=== PATIENT | female | born 1980 | race Caucasian/White ===

== ENCOUNTER → 2017-11-09 | Outpatient (CLI) | payer OTHER ==
[~2017-11-09] MED LIST: ABL/5 PO; CLX/20 PO; CYAN500T13 PO; FERR1TAB23 PO; LATA0.009 OPB; METF1000 PO
[2017-11-09 09:34] LABS: BASO % 0.5 %; BASO ABS # 0.04 K/uL (0-0.2); EOS % 2.4 %; HEMATOCRIT 40.3 % (37-47); HEMOGLOBIN 13.7 g/dL (12.0-16.0); IG# 0.01 K/uL (0.00-0.02); LYMPH % 45.9 %; LYMPH ABS # 3.83 K/uL (1.2-3.4); MEAN CELL VOLUME 91.2 fL (80-100); MEAN PLATELET VOLUME 9.5 fL (7.4-10.4); MONO % 6.8 %; MONO ABS # 0.57 K/uL (0.11-0.59); NEUT % 44.3 %; NEUT ABS # 3.69 K/uL (1.4-6.5); PLATELET COUNT 286 K/uL (130-400); RED CELL DISTRIBUTION WIDTH CV 12.8 % (11.5-14.5); RED CELL DISTRIBUTION WIDTH SD 42.8 fL (36.4-46.3); WHITE BLOOD COUNT 8.34 K/uL (4.8-10.8)
[2017-11-09 10:02] LABS: ALBUMIN 3.8 gm/dl (3.4-5.0); ALT/SGPT 28 U/L (12-78); AST/SGOT 15 U/L (15-37); BLOOD UREA NITROGEN 9 mg/dl (7-18); CALCIUM 8.4 mg/dl (8.5-10.1); CARBON DIOXIDE 25 mmol/L (21-32); CHOLESTEROL 149 mg/dl (0-200); CREATININE 1.01 mg/dl (0.60-1.20); GLUCOSE 83 mg/dl (70-99); POTASSIUM 3.6 mmol/L (3.5-5.1); SODIUM 142 mmol/L (136-145)
[2017-11-09 10:06] LABS: ALKALINE PHOSPHATASE 54 U/L (45-117); LDL CHOLESTEROL CALCULATED 65 mg/dl; TOTAL PROTEIN 6.8 gm/dl (6.4-8.2)
== END | disposition home or self-care (01) ==
LOC: C.LAB1850 07:22
PROVIDERS: ATTEND Nurse Practitioner Family
DX: E88.81 Metabolic syndrome and other insulin resistance (principal); E16.2 Hypoglycemia, unspecified; E53.8 Deficiency of other specified B group vitamins; R79.0 Abnormal level of blood mineral

== ENCOUNTER 2019-04-14 19:16 | Inpatient (IN) ==
[2019-04-14] MEDS ORDERED: SODIUM CHLORIDE 0.9% 1000ML 1,000 ML IV ONE (19:58)
[2019-04-14 20:10] LABS: Appearance Urine Clear (Clear); Bacteria Urine Automated Negative (Negative); Bilirubin Urine Negative (Negative); Blood Urine Negative (Negative); Color Urine Yellow; Epithelial Cell Urine Auto 20-30 /lpf (0-5); Glucose Urine UA Negative (Negative); Ketones Urine Negative (Negative); Leukocyte Esterase Urine 1+ (Negative); Nitrite Urine Negative (Negative); Protein Urine Negative (Negative); RBC Urine Automated 0-4 /hpf (0-4); Specific Gravity Urine 1.026 (1.000-1.030); Urobilinogen Urine Negative (Negative)
[2019-04-14 20:37] LABS: Basophils # (auto) 0.04 K/uL (0-0.2); Basophils % (auto) 0.4 %; Eosinophils # (auto) 0.07 K/uL (0-0.5); Eosinophils % (auto) 0.7 %; Hematocrit (blood only) 39.4 % (37-47); Hemoglobin 13.8 g/dL (12.0-16.0); Immature Granulocytes # (auto) 0.02 K/uL (0.00-0.02); Immature Granulocytes % (auto) 0.2 %; Lymphocytes # (auto) 3.82 K/uL (1.2-3.4); Lymphocytes % (auto) 40.3 %; Mean Corpuscular Hemoglobin 31.9 pg (25-34); Mean Platelet Volume 9.2 fL (7.4-10.4); Monocytes # (auto) 0.38 K/uL (0.11-0.59); Neutrophils # (auto) 5.14 K/uL (1.4-6.5); Neutrophils % (auto) 54.4 %; Platelet Count 244 K/uL (130-400); RDW Coefficient of Variation 13.1 % (11.5-14.5); RDW Standard Deviation 43.6 fL (36.4-46.3); Red Blood Count 4.33 M/uL (4.2-5.4); White Blood Count 9.47 K/uL (4.8-10.8)
--- NOTE | 2019-04-14 20:50 | XRay Report ---
KUB; PORTABLE AP ONE VIEW CHEST HISTORY: Acute drug overdose Overdose eval for bezoar COMPARISON: Chest radiograph 03/28/2011 FINDINGS: CHEST: Cardiomediastinal and hilar silhouettes are within normal limits. No pneumothorax, pleural effusion, focal airspace consolidation or overt pulmonary edema. 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 Bones appear grossly intact. KUB: The bowel gas pattern is non-obstructive. A round 1.6 cm calcification projects over the abdominal ri ght upper quadrant suggestive of a gallstone. There is no organomegaly. No renal calculi. No uretera l calculi. No pneumoperitoneum or pneumatosis. Mild lumbar levoscoliosis. No fracture. IMPRESSION: 1. No acute processes of the chest. 2. Nonobstructive bowel gas pattern. 3. Suggested cholelithiasis. Electronically signed by: Brandt Schneider M.D. 04/14/2019 8:48 PM
[2019-04-14 20:53] LABS: Amphetamines+Metham, Urine Neg (Neg); Barbiturates, Urine Neg (Neg); Benzodiazepine, Urine Neg (Neg); Cocaine, Urine Neg (Neg); MDMA (Ecstacy), Urine Neg (Neg); Methadone, Urine Neg (Neg); Opiate, Urine Neg (Neg); Phencyclidine, Urine Neg (Neg)
[2019-04-14 20:54] LABS: Albumin Level 3.8 gm/dl (3.4-5.0); BUN Creatinine Ratio 5.7 (10-20); Calcium 8.5 mg/dl (8.5-10.1); Creatinine Clr Calc Pharmacy 67.5 ml/min; Est GFR (African American) 75.7; Est GFR (Non-African American) 65.3; Potassium 3.7 mmol/L (3.5-5.1)
[2019-04-14 20:59] LABS: Pregnancy Test, Serum Negative (Negative)
[2019-04-14 21:04] LABS: Albumin Globulin Ratio 1.2 (0.9-2); Bilirubin,Total 0.4 mg/dl (0.2-1); Globulin 3.2 gm/dl (2.5-4.0); Thyroid Stimulating Hormone 1.18 uIu/ml (0.300-4.500)
[2019-04-14 21:17] LABS: Salicylate 2.7 mg/dl (2.8-20)
[2019-04-14] MEDS ORDERED: ACETYLCYSTEINE IV ONE (21:17)
[2019-04-14] MEDS ORDERED: DEXTROSE 5% IV ONE (21:17)
[2019-04-14] MEDS ORDERED: ONDANSETRON INJ 2 MG/ML 2 ML VIAL IV STA (22:28)
--- NOTE | 2019-04-15 00:57 | History & Physical Report ---
Date of Service April 15, 2019 Assessment & Plan (1) Intentional acetaminophen overdose: Admit tele Acetylcysteine protocol. suicide precautions Consult Psychiatry DVT prophylaxis = SCDs and Lovenox. (2) Nausea & vomiting: Zofran PRN (3) Anxiety disorder: Lorazepam prn (4) PCOS (polycystic ovarian syndrome): Uses Metformin (5) Glaucoma: Continue Xalatan gtts History of Present Illness 38 y/o female presented to the ED 6 hours after ingesting "a handful" of Tylenol. The ingestion is intentional, but it is not entirely clear that she was suicidal. She was concerned enough following the ingestion that she went to pharmacy and took charcoal. Upon presentation she is complaining of nausea. No chest pain, SOB, cough, F/C, vomiting or diarrhea. The patient is difficult to obtain history as she answers vaguely and changes subject. Primary Care Provider: Lance Luu III, CRNP Allergies Allergy/AdvReac Type Severity Reaction Status Date / Time No Known Allergies Allergy Unknown Verified 05/02/19 09:07 Home Medications Home Medications Medication Instructions Recorded Confirmed Type cyanocobalamin (vitamin B-12) 1,000 mcg PO DAILY 05/02/19 05/02/19 History 1,000 mcg capsule escitalopram 10 mg tablet 15 mg PO DAILY 30 Days #45 tab 05/02/19 05/02/19 Rx latanoprost 0.005 % eye drops 1 drops OP QPM 05/02/19 05/02/19 History metformin 1,000 mg tablet 1,000 mg PO BID 05/02/19 05/02/19 History multivitamin with iron tablet 1 tab PO DAILY 05/02/19 05/02/19 History Past Med/Surg History Medical History Anxiety disorder (Chronic) Blindness of left eye (Chronic) Dysmetabolic syndrome X (Chronic) Glaucoma (Chronic) PCOS (polycystic ovarian syndrome) (Chronic) No pertinent family history Surgical History No pertinent past surgical history Family History Other No pertinent family history Social History Preferred Language: Setswana Communication Ability: Visual iman Delivery Crew Member Required: No Beliefs That Will Affect Care: None Current Living Situation: Alone Feels Safe at Home: Yes Smoking Status: Current every day smoker Second Hand Exposure: No ; Hx Alcohol Use: Yes Alcohol type: wine Hx Substance Use: No Review of Systems Review of Systems: All systems reviewed & are unremarkable except as noted in HPI & below Physical Exam Physical Exam: General- adult female, NAD Head- atraumatic Eyes- PERRL, EOMI, anicteric ENT- oropharynx clear Neck- supple, no JVD, no adenopathy, no thyromegaly. Lungs- clear to auscultation b/l, No rales, rhonchi, or wheezes. Heart- regular rhythm; no murmur, no gallop, no rub appreciated Abdomen- normal bowel sounds, soft, nontender. Extremities- no pretibial edema, no calf tenderness; peripheral pulses intact. Neuro- alert, oriented x 3; PERRL, EOMI. 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 Skin- warm & dry Results & Data Vital Signs (Past 12 Hours) Vital Signs Temp Pulse Resp BP Pulse Ox 04/14/19 21:30 82 24 141/83 H 04/14/19 21:00 79 17 136/75 04/14/19 20:50 80 21 04/14/19 20:41 97 H 25 H 04/14/19 20:33 92 H 27 H 137/80 95 04/14/19 19:34 36.5 C 74 18 125/70 100 Laboratory Results Laboratory Results WBC 9.47 K/uL (4.8-10.8) 04/14/19 20:25 RBC 4.33 M/uL (4.2-5.4) 04/14/19 20:25 Hgb 13.8 g/dL (12.0-16.0) 04/14/19 20:25 Hct 39.4 % (37-47) 04/14/19 20:25 MCV 91.0 fL (80-100) 04/14/19 20:25 MCH 31.9 pg (25-34) 04/14/19 20:25 MCHC 35.0 g/dL (32-36) 04/14/19 20:25 RDW Std Deviation 43.6 fL (36.4-46.3) 04/14/19 20:25 RDW Coeff of Cammie 13.1 % (11.5-14.5) 04/14/19 20:25 Plt Count 244 K/uL (130-400) 04/14/19 20:25 MPV 9.2 fL (7.4-10.4) 04/14/19 20:25 Immature Gran % (Auto) 0.2 % 04/14/19 20:25 Neut % (Auto) 54.4 % 04/14/19 20:25 Lymph % (Auto) 40.3 % 04/14/19 20:25 Pettis % (Auto) 4.0 % 04/14/19 20:25 Eos % (Auto) 0.7 % 04/14/19 20:25 Baso % (Auto) 0.4 % 04/14/19 20:25 Immature Gran # (Auto) 0.02 K/uL (0.00-0.02) 04/14/19 20:25 Neut # (Auto) 5.14 K/uL (1.4-6.5) 04/14/19 20:25 Lymph # (Auto) 3.82 K/uL (1.2-3.4) H 04/14/19 20:25 Pettis # (Auto) 0.38 K/uL (0.11-0.59) 04/14/19 20:25 Eos # (Auto) 0.07 K/uL (0-0.5) 04/14/19 20:25 Baso # (Auto) 0.04 K/uL (0-0.2) 04/14/19 20:25 Sodium 139 mmol/L (136-145) 04/14/19 20:25 Potassium 3.7 mmol/L (3.5-5.1) 04/14/19 20:25 Chloride 107 mmol/L (98-107) 04/14/19 20:25 Carbon Dioxide 22 mmol/L (21-32) 04/14/19 20:25 Anion Gap 10.0 (3-11) 04/14/19 20:25 BUN 6 mg/dl (7-18) L 04/14/19 20:25 Creatinine 1.07 mg/dl (0.6-1.2) 04/14/19 20:25 Est Cr Clr Drug Dosing 67.5 ml/min 04/14/19 20:25 Est GFR ( Amer) 75.7 04/14/19 20:25 Est GFR (Non-Af Amer) 65.3 04/14/19 20:25 BUN/Creatinine Ratio 5.7 (10-20) L 04/14/19 20:25 Glucose 104 mg/dl (70-99) H 04/14/19 20:25 Calcium 8.5 mg/dl (8.5-10.1) 04/14/19 20:25 Total Bilirubin 0.4 mg/dl (0.2-1) 04/14/19 20:25 AST 16 U/L (15-37) 04/14/19 20:25 ALT 24 U/L (12-78) 04/14/19 20:25 Alkaline Phosphatase 48 U/L (45-117) 04/14/19 20:25 Total Protein 7.0 gm/dl (6.4-8.2) 04/14/19 20:25 Albumin 3.8 gm/dl (3.4-5.0) 04/14/19 20:25 Globulin 3.2 gm/dl (2.5-4.0) 04/14/19 20:25 Albumin/Globulin Ratio 1.2 (0.9-2) 04/14/19 20:25 TSH 1.180 uIu/ml (0.300-4.500) 04/14/19 20:25 HCG, Qual Negative (Negative) 04/14/19 20:25 Urine Color Yellow 04/14/19 19:50 Urine Appearance Clear (Clear) 04/14/19 19:50 Urine pH 5.0 (4.5-7.5) 04/14/19 19:50 Ur Specific [place] 1.026 (1.000-1.030) 04/14/19 19:50 Urine Protein Negative (Negative) 04/14/19 19:50 Urine Glucose (UA) Negative (Negative) 04/14/19 19:50 Urine Ketones Negative (Negative) 04/14/19 19:50 Urine Blood Negative (Negative) 04/14/19 19:50 Urine Nitrite Negative (Negative) 04/14/19 19:50 Urine Bilirubin Negative (Negative) 04/14/19 19:50 Urine Urobilinogen Negative (Negative) 04/14/19 19:50 Ur Leukocyte Esterase 1+ (Negative) H 04/14/19 19:50 Urine WBC (Auto) 1-5 /hpf (0-5) 04/14/19 19:50 Urine RBC (Auto) 0-4 /hpf (0-4) 04/14/19 19:50 U Hyaline Cast (Auto) 1-5 /lpf (0-5) 04/14/19 19:50 U Epithel Cells (Auto) 20-30 /lpf (0-5) H 04/14/19 19:50 Urine Bacteria (Auto) Negative (Negative) 04/14/19 19:50 Salicylates 2.7 mg/dl (2.8-20) L 04/14/19 20:25 Urine Opiates Screen Neg (Neg) 04/14/19 19:50 Ur Methadone, Qual Neg (Neg) 04/14/19 19:50 Acetaminophen 371 ug/ml (10-30) H* 04/14/19 20:25 Urine Barbiturates Neg (Neg) 04/14/19 19:50 Ur Phencyclidine (PCP) Neg (Neg) 04/14/19 19:50 U Amphetamin/Meth Scrn Neg (Neg) 04/14/19 19:50 MDMA (Ecstasy) Screen Neg (Neg) 04/14/19 19:50 U Benzodiazepines Scrn Neg (Neg) 04/14/19 19:50 Ur Cocaine Metabolite Neg (Neg) 04/14/19 19:50 U Marijuana (THC) Screen Neg (Neg) 04/14/19 19:50 Ethyl Alcohol mg/dL < 3.0 mg/dl (0-3) 04/14/19 20:25 Code Status & VTE Plan VTE Prophylaxis Plan VTE Prophylaxis will be ordered: Yes PG Care Time/CCT Total # of Minutes Spent Total Time Spent: 75 Total Time Spent with Patient: Total time spent is greater than 50% in coordination of care (as documented) at patient's floor/unit and/or counseling patient: (1) Intentional acetaminophen overdose Encounter type: initial encounter Qualified Code(s): T39.1X2A - Poisoning by 4-Aminophenol derivatives, intentional self-harm, initial encounter (2) Nausea & vomiting Vomiting Intractability: non-intractable Vomiting type: unspecified Qu alified Code(s): R11.2 - Nausea with vomiting, unspecified
[2019-04-15] MEDS ORDERED: ONDANSETRON INJ 2 MG/ML 2 ML VIAL IV PRN (01:33)
[2019-04-15] MEDS ORDERED: LORazepam 0.5 MG/1 ML VIAL IV PRN (01:33)
--- NOTE | 2019-04-15 05:41 | Emergency Department Note ---
Entered by Ruperto Patiño acting as a scribe for History of Present Illness General Chief complaint: Overdose (Intentional) Stated complaint: NAUSEA,ANXIETY Time Seen by Provider: 04/14/19 19:58 Source: patient History of Present Illness Onset (ago): hour(s) 6 Severity: severe (30 tablets of acetaminophen) Pain Consistency: + constant Quality: + other (overdose) Associated symptoms: + denies other symptoms (hurting herself before, auditory hallucination, vomiting) and + other (nausea) The patient is a 38 y/o female who presents to the ED w/ CC of an overdose of about 30 tablets of acetaminophen 6 hours ago. The patient states she has bad anxiety and does not handle stress well. She reports she has been experiencing a lot of family stress. The patient notes she was home alone when she took 30 tables of acetaminophen and drank two beers. She states she did not want to hurt herself. The patient reports "I wanted to sleep for a long time". She notes she thought the pills would numb her emotional feelings. The patient states she did not know it was harmful to take all of the acetaminophen because "there was no aspirin in there." She reports she did not vomit but she wanted to, so she bought some charcoal to try to make herself vomit because "anything in a large quantity is bad". The patient notes she is currently nauseous and came here on her own because she was feeling sick and wanted to vomit. She states she has felt hopeless the past month because her aunt was just diagnosed with lung cancer. The patient denies hurting herself before, auditory hallucinations, drinking alcohol regularly, and using marijuana or other drugs. Home Medications Home Medications Medication Instructions Recorded Confirmed Type ARIPIPRAZOLE (ABILIFY) 5 mg PO QPM #0 tab 06/28/15 History CYANOCOBALAMIN (VITAMIN B12 500MCG) 500 mcg PO QAM #0 tab 06/28/15 History Citalopram (Citalopram 1 tab PO QAM #0 06/28/15 History Hydrobromide) FERROUS SULFATE (IRON) 1 tab PO QAM #0 06/28/15 History Latanoprost 0.005% Oph (Xalatan 1 drp OPB QPM #0 06/28/15 History 0.005% Oph) METFORMIN HCL (GLUCOPHAGE) 1,000 mg PO BID #0 tab 06/28/15 History Allergies Allergy/AdvReac Type Severity Reaction Status Date / Time No Known Allergies Allergy Unknown Verified 08/15/15 11:04 Past Med/Surg History Medical History Anxiety disorder (Chronic) Blindness of left eye (Chronic) Dysmetabolic syndrome X (Chronic) Glaucoma (Chronic) PCOS (polycystic ovarian syndrome) (Chronic) No pertinent family history Surgical History No pertinent past surgical history Family History Other No pertinent family history Social History Feels Safe at Home: Yes Smoking Status: Current every day smoker Review of Systems See HPI for pertinent positives & negatives. and A total of 10 systems reviewed and were otherwise negative Physical Exam Vital Signs Vital Signs - 24 hr 04/14/19 19:34 04/14/19 20:33 04/14/19 20:41 Temperature 36.5 C Temperature Source Oral Sepsis Recent Fever Within 48 Hours No Sepsis New/Unexplained Change in Mental Status No Sepsis Action Taken by Nursing No Action Required Pulse Rate 74 92 H 97 H Pulse Rate from SpO2 Sensor 94 H Respiratory Rate 18 27 H 25 H Blood Pressure 125/70 137/80 Blood Pressure Mean 88 99 Pulse Oximetry 100 95 Oxygen Delivery Method Room Air 04/14/19 20:50 04/14/19 21:00 04/14/19 21:30 Temperature Temperature Source Sepsis Recent Fever Within 48 Hours Sepsis New/Unexplained Change in Mental Status Sepsis Action Taken by Nursing Pulse Rate 80 79 82 Pulse Rate from SpO2 Sensor Respiratory Rate 21 17 24 Blood Pressure 136/75 141/83 H Blood Pressure Mean 95 102 Pulse Oximetry Oxygen Delivery Method GENERAL: Awake, alert, uncomfortable-appearing, in no distress HENT: Normocephalic, atraumatic. Oropharynx with dry mucous membranes and otherwise unremarkable. EYES: Normal conjunctiva. Sclera non-icteric. NECK: Supple. No nuchal rigidity. FROM. No JVD. RESPIRATORY: CTAB. CARDIAC: Regular rate, normal rhythm. Extremities warm and well perfused. Pulses equal. ABDOMEN: Soft, non-distended. Mild epigastric discomfort without discrete tenderness to palpation. No rebound or guarding. No masses. RECTAL: Deferred. MUSCULOSKELETAL: Chest examination reveals no tenderness. The back is symmetrical on inspection without obvious abnormality. There is no CVA tenderness to palpation. No joint edema. LOWER EXTREMITIES: Calves are equal size bilaterally and non-tender. No edema. No discoloration. NEURO: Normal sensorium. No sensory or motor deficits noted. SKIN: No rash or jaundice noted. Course 2008: Past medical records reviewed. The patient was evaluated in room A05. A complete history and physical exam was performed. 2228: I reviewed the patient's case with Dr. Velez, [facility] [place] He will evaluate the patient for further management. Administered Medications Acetylcysteine 7,290 mg/ (Dextrose) 1,036.45 mls @ 62.5 mls/hr IV ONCE ONE Stop: 04/15/19 13:51 Last Admin: 04/15/19 04:25 Dose: 62.5 mls/hr Documented by: [id number] Discontinued Medications Sodium Chloride (Nss 1000ml) 1,000 mls @ 999 mls/hr IV .Q1H1M ONE Stop: 04/14/19 20:58 Last Infusion: 04/14/19 21:31 Dose: 0 mls/hr Documented by: [id number] Admin: 04/14/19 20:26 Dose: 999 mls/hr Documented by: [id number] Acetylcysteine 10,940 mg/ (Dextrose) 254.7 mls @ 200 mls/hr IV ONCE ONE Stop: 04/14/19 22:33 Last Infusion: 04/15/19 01:47 Dose: 0 mls/hr Documented by: [id number] Admin: 04/14/19 21:45 Dose: 200 mls/hr Documented by: [id number] Acetylcysteine 3,650 mg/ (Dextrose) 518.25 mls @ 125 mls/hr IV ONCE ONE Stop: 04/15/19 01:25 Last Infusion: 04/15/19 04:02 Dose: 0 mls/hr Documented by: [id number] Admin: 04/14/19 23:39 Dose: 125 mls/hr Documented by: [id number] Ondansetron HCl (Zofran) 4 mg IV NOW STA Stop: 04/14/19 22:29 Last Admin: 04/14/19 22:44 Dose: 4 mg Documented by: [id number] Medical Decision Making Differential Diagnosis Differential includes overdose on Tylenol/aspirin/ethanol, ethylene glycol, methanol, prescribed medications, not prescribe medications/street drugs, metabolic process, traumatic process. Medical Records Attestation: I reviewed the patient's medical records. Home Medications Current Medication List: was personally reviewed by me Laboratory Data Attestation: I reviewed the patient's lab results. Result diagrams: 04/14/19 20:25 04/14/19 20:25 Lab Results 04/14/19 04/14/19 04/14/19 Range/Units 19:50 19:50 20:25 WBC 9.47 (4.8-10.8) K/uL RBC 4.33 (4.2-5.4) M/uL Hgb 13.8 (12.0-16.0) g/dL Hct 39.4 (37-47) % MCV 91.0 (80-100) fL MCH 31.9 (25-34) pg MCHC 35.0 (32-36) g/dL RDW Std Deviation 43.6 (36.4-46.3) fL RDW Coeff of Cammie 13.1 (11.5-14.5) % Plt Count 244 (130-400) K/uL MPV 9.2 (7.4-10.4) fL Immature Gran % (Auto) 0.2 % Neut % (Auto) 54.4 % Lymph % (Auto) 40.3 % [place] % (Auto) 4.0 % Eos % (Auto) 0.7 % Baso % (Auto) 0.4 % Immature Gran # (Auto) 0.02 (0.00-0.02) K/uL Neut # (Auto) 5.14 (1.4-6.5) K/uL Lymph # (Auto) 3.82 H (1.2-3.4) K/uL [place] # (Auto) 0.38 (0.11-0.59) K/uL Eos # (Auto) 0.07 (0-0.5) K/uL Baso # (Auto) 0.04 (0-0.2) K/uL Sodium (136-145) mmol/L Potassium (3.5-5.1) mmol/L Chloride (98-107) mmol/L Carbon Dioxide (21-32) mmol/L Anion Gap (3-11) BUN (7-18) mg/dl Creatinine (0.6-1.2) mg/dl Est Cr Clr Drug Dosing ml/min Est GFR ( Amer) Est GFR (Non-Af Amer) BUN/Creatinine Ratio (10-20) Glucose (70-99) mg/dl Calcium (8.5-10.1) mg/dl Total Bilirubin (0.2-1) mg/dl AST (15-37) U/L ALT (12-78) U/L Alkaline Phosphatase (45-117) U/L Total Protein (6.4-8.2) gm/dl Albumin (3.4-5.0) gm/dl Globulin (2.5-4.0) gm/dl Albumin/Globulin Ratio (0.9-2) TSH (0.300-4.500) uIu/ml HCG, Qual (Negative) Urine Color Yellow Urine Appearance Clear (Clear) Urine pH 5.0 (4.5-7.5) Ur Specific [place] 1.026 (1.000-1.030) Urine Protein Negative (Negative) Urine Glucose (UA) Negative (Negative) Urine Ketones Negative (Negative) Urine Blood Negative (Negative) Urine Nitrite Negative (Negative) Urine Bilirubin Negative (Negative) Urine Urobilinogen Negative (Negative) Ur Leukocyte Esterase 1+ H (Negative) Urine WBC (Auto) 1-5 (0-5) /hpf Urine RBC (Auto) 0-4 (0-4) /hpf U Hyaline Cast (Auto) 1-5 (0-5) /lpf U Epithel Cells (Auto) 20-30 H (0-5) /lpf Urine Bacteria (Auto) Negative (Negative) Salicylates (2.8-20) mg/dl Urine Opiates Screen Neg (Neg) Ur Methadone, Qual Neg (Neg) Acetaminophen (10-30) ug/ml Urine Barbiturates Neg (Neg) Ur Phencyclidine (PCP) Neg (Neg) U Amphetamin/Meth Scrn Neg (Neg) MDMA (Ecstasy) Screen Neg (Neg) U Benzodiazepines Scrn Neg (Neg) Ur Cocaine Metabolite Neg (Neg) U Marijuana (THC) Screen Neg (Neg) Ethyl Alcohol mg/dL (0-3) mg/dl 04/14/19 04/14/1904/14/19 Range/Units 20:25 20:25 20:25 WBC (4.8-10.8) K/uL RBC (4.2-5.4) M/uL Hgb (12.0-16.0) g/dL Hct (37-47) % MCV (80-100) fL MCH (25-34) pg MCHC (32-36) g/dL RDW Std Deviation (36.4-46.3) fL RDW Coeff of Cammie (11.5-14.5) % Plt Count (130-400) K/uL MPV (7.4-10.4) fL Immature Gran % (Auto) % Neut % (Auto) % Lymph % (Auto) % [place] % (Auto) % Eos % (Auto) % Baso % (Auto) % Immature Gran # (Auto) (0.00-0.02) K/uL Neut # (Auto) (1.4-6.5) K/uL Lymph # (Auto) (1.2-3.4) K/uL [place] # (Auto) (0.11-0.59) K/uL Eos # (Auto) (0-0.5) K/uL Baso # (Auto) (0-0.2) K/uL Sodium 139 (136-145) mmol/L Potassium 3.7 (3.5-5.1) mmol/L Chloride 107 (98-107) mmol/L Carbon Dioxide 22 (21-32) mmol/L Anion Gap 10.0 (3-11) BUN 6 L (7-18) mg/dl Creatinine 1.07 (0.6-1.2) mg/dl Est Cr Clr Drug Dosing 67.5 ml/min Est GFR ( Amer) 75.7 Est GFR (Non-Af Amer) 65.3 BUN/Creatinine Ratio 5.7 L (10-20) Glucose 104 H (70-99) mg/dl Calcium 8.5 (8.5-10.1) mg/dl Total Bilirubin 0.4 (0.2-1) mg/dl AST 16 (15-37) U/L ALT 24 (12-78) U/L Alkaline Phosphatase 48 (45-117) U/L Total Protein 7.0 (6.4-8.2) gm/dl Albumin 3.8 (3.4-5.0) gm/dl Globulin 3.2 (2.5-4.0) gm/dl Albumin/Globulin Ratio 1.2 (0.9-2) TSH 1.180 (0.300-4.500) uIu/ml HCG, Qual (Negative) Urine Color Urine Appearance (Clear) Urine pH (4.5-7.5) Ur Specific [place] (1.000-1.030) Urine Protein (Negative) Urine Glucose (UA) (Negative) Urine Ketones (Negative) Urine Blood (Negative) Urine Nitrite (Negative) Urine Bilirubin (Negative) Urine Urobilinogen (Negative) Ur Leukocyte Esterase (Negative) Urine WBC (Auto) (0-5) /hpf Urine RBC (Auto) (0-4) /hpf U Hyaline Cast (Auto) (0-5) /lpf U Epithel Cells (Auto) (0-5) /lpf Urine Bacteria (Auto) (Negative) Salicylates 2.7 L (2.8-20) mg/dl Urine Opiates Screen (Neg) Ur Methadone, Qual (Neg) Acetaminophen 371 H* (10-30) ug/ml Urine Barbiturates (Neg) Ur Phencyclidine (PCP) (Neg) U Amphetamin/Meth Scrn (Neg) MDMA (Ecstasy) Screen (Neg) U Benzodiazepines Scrn (Neg) Ur Cocaine Metabolite (Neg) U Marijuana (THC) Screen (Neg) Ethyl Alcohol mg/dL < 3.0 (0-3) mg/dl 04/14/19 Range/Units 20:25 WBC (4.8-10.8) K/uL RBC (4.2-5.4) M/uL Hgb (12.0-16.0) g/dL Hct (37-47) % MCV (80-100) fL MCH (25-34) pg MCHC (32-36) g/dL RDW Std Deviation (36.4-46.3) fL RDW Coeff of Cammie (11.5-14.5) % Plt Count (130-400) K/uL MPV (7.4-10.4) fL Immature Gran % (Auto) % Neut % (Auto) % Lymph % (Auto) % [place] % (Auto) % Eos % (Auto) % Baso % (Auto) % Immature Gran # (Auto) (0.00-0.02) K/uL Neut # (Auto) (1.4-6.5) K/uL Lymph # (Auto) (1.2-3.4) K/uL [place] # (Auto) (0.11-0.59) K/uL Eos # (Auto) (0-0.5) K/uL Baso # (Auto) (0-0.2) K/uL Sodium (136-145) mmol/L Potassium (3.5-5.1) mmol/L Chloride (98-107) mmol/L Carbon Dioxide (21-32) mmol/L Anion Gap (3-11) BUN (7-18) mg/dl Creatinine (0.6-1.2) mg/dl Est Cr Clr Drug Dosing ml/min Est GFR ( Amer) Est GFR (Non-Af Amer) BUN/Creatinine Ratio (10-20) Glucose (70-99) mg/dl Calcium (8.5-10.1) mg/dl Total Bilirubin (0.2-1) mg/dl AST (15-37) U/L ALT (12-78) U/L Alkaline Phosphatase (45-117) U/L Total Protein (6.4-8.2) gm/dl Albumin (3.4-5.0) gm/dl Globulin (2.5-4.0) gm/dl Albumin/Globulin Ratio (0.9-2) TSH (0.300-4.500) uIu/ml HCG, Qual Negative (Negative) Urine Color Urine Appearance (Clear) Urine pH (4.5-7.5) Ur Specific [place] (1.000-1.030) Urine Protein (Negative) Urine Glucose (UA) (Negative) Urine Ketones (Negative) Urine Blood (Negative) Urine Nitrite (Negative) Urine Bilirubin (Negative) Urine Urobilinogen (Negative) Ur Leukocyte Esterase (Negative) Urine WBC (Auto) (0-5) /hpf Urine RBC (Auto) (0-4) /hpf U Hyaline Cast (Auto) (0-5) /lpf U Epithel Cells (Auto) (0-5) /lpf Urine Bacteria (Auto) (Negative) Salicylates (2.8-20) mg/dl Urine Opiates Screen (Neg) Ur Methadone, Qual (Neg) Acetaminophen (10-30) ug/ml Urine Barbiturates (Neg) Ur Phencyclidine (PCP) (Neg) U Amphetamin/Meth Scrn (Neg) MDMA (Ecstasy) Screen (Neg) U Benzodiazepines Scrn (Neg) Ur Cocaine Metabolite (Neg) U Marijuana (THC) Screen (Neg) Ethyl Alcohol mg/dL (0-3) mg/dl Imaging Data Radiologist's Impression: Radiology results as stated below per my review and the radiologist's interpretation: KUB; PORTABLE AP ONE VIEW CHEST HISTORY: Acute drug overdose Overdose eval for bezoar COMPARISON: Chest radiograph 03/28/2011 FINDINGS: CHEST: Cardiomediastinal and hilar silhouettes are within normal limits. No pneumothorax, pleural effusion, focal airspace consolidation or overt pulmonary edema. 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 Bones appear grossly intact. KUB: The bowel gas pattern is non-obstructive. A round 1.6 cm calcification projects over the abdominal right upper quadrant suggestive of a gallstone. There is no organomegaly. No renal calculi. No ureteral calculi. No pneumoperitoneum or pneumatosis. Mild lumbar levoscoliosis. No fracture. IMPRESSION: 1. No acute processes of the chest. 2. Nonobstructive bowel gas pattern. 3. Suggested cholelithiasis. Electronically signed by: Brandt Schneider M.D. 04/14/2019 8:48 PM ECG Data Attestation: I personally reviewed and interpreted this ECG as follows: Indication: toxicologic Rate (beats per minute): 69 Rhythm: normal sinus Findings: + other (DE 130, QRS 80, QTc 469); no ST depression, no ST elevation and no acute ischemic change Blood Pressure Blood Pressure Findings: Elevated blood pressure Blood Pressure Disposition: further management by hospitalist LIGIA Narrative The patient is a 38 y/o woman with a pmhx of PCOS who presents to the emergency department with intentional Acetaminophen OD of approximately 30 tablets per patients report per HPI. Patient reports taking the pills in excess to "dull her pain" but says she did was not trying to kill herself. She says she did not known acetaminophen could be harmful yet, she acknowledges realizing it was not safe and reports going to a pharmacy for charcoal capsules, which she reports she took. On arrival the patient is uncomfortable but NAD, AFVSS. She appears clinically dry. She has mild epigastric discomfort without discrete ttp. EKG without over acute ischema and with normal intervals. CXR and KUB negative for acute process/no Bezoar. WBC, H/H, platelets wnl. Chemistry without acidosis. LFTs and electrolytes unremarkable. UA negative for infection. ASA dectable but no elevated and patient does not exhibit toxidrome c/w salicylate OD. However, apap level 371 approximately 6.5 hours after ingestion. Thus patient was ordered for NAC. I did explain to the patient the plan for medical admission and additionally the need for psychiatric evaluation and that a 302 petition will be filed given our concern for attempt at self harm. Patient expressed understan ding to she again denied "wanting to hurt herself". Case d/[place] Velez, [facility] [place] who will evaluate the patient for admission. Impression & Plan Intentional acetaminophen overdose, Abdominal pain, Nausea & vomiting, Depression Critical Care Time Critical Care Time: Yes Total Critical Care Time: 75 I have personally spent greater than 75 minutes of critical care time in the direct management of this patient. This includes bedside care, interpretation of diagnostic studies, and testing, discussion with consultants, patient, and family members, and other required patient management activities. This 75 minutes is in excess of all separately billable procedures. Discharge Plan Visit Data *Final* Discharge Date/Time: 04/15/19 01:04 Chief Complaint: Overdose (Intentional) Stated Complaint: NAUSEA,ANXIETY Other Complaint: Nausea ED Provider: Brodie Castanon Discharge Problem: Intentional acetaminophen overdose, Abdominal pain, Nausea & vomiting, Depression Patient Disposition: Admitted As Inpatient Discharge Instructions Interventions: ED Discharge Assessment Last Done: 04/15/19 01:04 Discharge Problem: Intentional acetaminophen overdose Qualifiers: Encounter type: initial encounter Qualified Code(s): T39.1X2A - Poisoning by 4- Aminophenol derivatives, intentional self-harm, initial encounter Abdominal pain Qualifiers: Abdominal location: epigastric Qualified Code(s): R10.13 - Epigastric pain Nausea & vomiting Qualifiers: Vomiting type: unspecified Vomiting Intractability: non-intractable Qualified Code(s): R11.2 - Nausea with vomiting, unspecified The scribe's documentation has been prepared under my direction and personally reviewed by me in its entirety. I confirm that the note above accurately reflects all work, treatment, procedures, and medical decision making performed by me.
[2019-04-15 07:07] LABS: Hematocrit (blood only) 39.9 % (37-47); Hemoglobin 13.7 g/dL (12.0-16.0); Mean Corpuscular Hemoglobin 31.4 pg (25-34); Mean Corpuscular Hgb Conc 34.3 g/dL (32-36); Mean Corpuscular Volume 91.3 fL (80-100); Mean Platelet Volume 9.3 fL (7.4-10.4); Platelet Count 220 K/uL (130-400); RDW Coefficient of Variation 13.2 % (11.5-14.5); RDW Standard Deviation 44.1 fL (36.4-46.3); Red Blood Count 4.37 M/uL (4.2-5.4); White Blood Count 13.28 K/uL (4.8-10.8)
[2019-04-15 07:17] LABS: INR 1.2 (0.9-1.1); Prothrombin Time 12.6 Seconds (9.0-12.0)
[2019-04-15 07:39] LABS: Albumin Level 3.1 gm/dl (3.4-5.0); BUN Creatinine Ratio 6.5 (10-20); Bilirubin Direct 0.1 mg/dl (0-0.2); Calcium 8.4 mg/dl (8.5-10.1); Creatinine Clr Calc Pharmacy 74.3 ml/min; Est GFR (African American) 86.3; Est GFR (Non-African American) 74.5; Potassium 3.6 mmol/L (3.5-5.1)
[2019-04-15 07:41] LABS: Albumin Globulin Ratio 1.1 (0.9-2); Bilirubin,Total 0.5 mg/dl (0.2-1); Globulin 2.8 gm/dl (2.5-4.0); Total Protein 5.9 gm/dl (6.4-8.2)
[2019-04-15] MEDS ORDERED: LATANOPROST 0.005% OP SOLN 2.5 ML BTL OP SCH ×2 (09:00→18:00)
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
[2019-04-15] MEDS: NICOTINE POLACRILEX 2 MG GUM MT PRN ×3 (12:00→21:22)
[2019-04-15] MEDS: FAMOTIDINE 20 MG TAB PO SCH ×2 (12:02→21:14)
[2019-04-15] MEDS: ENOXAPARIN INJ 40 MG/0.4 ML SYR SQ SCH (12:02)
--- NOTE | 2019-04-15 13:35 | Hospitalist Progress Note ---
Date of Service April 15, 2019 Assessment & Plan (1) Intentional acetaminophen overdose: - Acetylcysteine protocol -- will complete infusion at 8 pm this evening. - Suicide precautions. - Tylenol level 371 --> 81. - Psych consulted, appreciate input. May require inpt psych if we cannot es tablish appropriate outpatient support. (2) Anxiety disorder: - Ativan prn. (3) Nausea & vomiting: - Zofran prn -- symptoms now resolved. (4) PCOS (polycystic ovarian syndrome): - On Metformin - holding as inpt. (5) Glaucoma: - Continue home eye drops. Dispo: Discharge likely on 04/16/19 pending psych consult and outpatient follow up. Subjective Pt. is doing well today - no acute pain, chest pain, SOB, N/V. Is having regular BMs. Psych consulted, appreciate input. Review of Systems Review of Systems: All systems reviewed & are unremarkable except as noted in HPI & below Constitutional: no fever, no chills, no fatigue, no weakness and no anorexia Respiratory: no cough, no dyspnea, no dyspnea on exertion and no wheezing Cardiovascular: no chest pain, no palpitations and no edema Gastrointestinal: no abdominal pain, no nausea, no constipation and no diarrhea/loose stools Genitourinary: no difficulty urinating Musculoskeletal: no back pain and no joint pain Integumentary: no non-healing lesions Physical Exam Physical Exam: General: Resting comfortably HEENT: NC/AT; PERRLA with EOMI; [place] conjunctiva, MMM. No erythema of posterior pharynx Neck: Supple and nontender Cardiac: RRR Lungs: CTA bilaterally Abdomen: Bowel normoactive X 4; Nontender to palpation Extremities: Warm. No edema present Neuro: No focal weakness Skin: No rash Results & Data Vital Signs (Past 12 Hours) Vital Signs Temp Pulse Pulse Resp BP BP Pulse Ox 04/15/19 11:54 36.5 C 77 16 143/83 H 98 04/15/19 09:03 70 16 148/84 H 97 04/15/19 06:11 36.4 C L 90 18 119/63 94 04/15/19 04:17 36.6 C 77 21 114/76 97 Laboratory Results 04/15/19 04/15/19 04/15/19 Range/Units 06:54 06:54 06:54 WBC (4.8-10.8) K/uL RBC (4.2-5.4) M/uL Hgb (12.0-16.0) g/dL Hct (37-47) % MCV (80-100) fL MCH (25-34) pg MCHC (32-36) g/dL RDW Std Deviation (36.4-46.3) fL RDW Coeff of Cammie (11.5-14.5) % Plt Count (130-400) K/uL MPV (7.4-10.4) fL Immature Gran % (Auto) % Neut % (Auto) % Lymph % (Auto) % [place] % (Auto) % Eos % (Auto) % Baso % (Auto) % Immature Gran # (Auto) (0.00-0.02) K/uL Neut # (Auto) (1.4-6.5) K/uL Lymph # (Auto) (1.2-3.4) K/uL [place] # (Auto) (0.11-0.59) K/uL Eos # (Auto) (0-0.5) K/uL Baso # (Auto) (0-0.2) K/uL PT 12.6 H (9.0-12.0) Seconds INR 1.2 H (0.9-1.1) Sodium 139 (136-145) mmol/L Potassium 3.6 (3.5-5.1) mmol/L Chloride 112 H (98-107) mmol/L Carbon Dioxide 21 (21-32) mmol/L Anion Gap 7.0 (3-11) BUN 6 L (7-18) mg/dl Creatinine 0.96 (0.6-1.2) mg/dl Est Cr Clr Drug Dosing 74.3 ml/min Est GFR ( Amer) 86.3 Est GFR (Non-Af Amer) 74.5 BUN/Creatinine Ratio 6.5 L (10-20) Glucose 103 H (70-99) mg/dl Calcium 8.4 L (8.5-10.1) mg/dl Total Bilirubin 0.5 (0.2-1) mg/dl Direct Bilirubin 0.1 (0-0.2) mg/dl AST 10 L (15-37) U/L ALT 22 (12-78) U/L Alkaline Phosphatase 45 (45-117) U/L Total Protein 5.9 L (6.4-8.2) gm/dl Albumin 3.1 L (3.4-5.0) gm/dl Globulin 2.8 (2.5-4.0) gm/dl Albumin/Globulin Ratio 1.1 (0.9-2) TSH (0.300-4.500) uIu/ml HCG, Qual (Negative) Urine Color Urine Appearance (Clear) Urine pH (4.5-7.5) Ur Specific [place] (1.000-1.030) Urine Protein (Negative) Urine Glucose (UA) (Negative) Urine Ketones (Negative) Urine Blood (Negative) Urine Nitrite (Negative) Urine Bilirubin (Negative) Urine Urobilinogen (Negative) Ur Leukocyte Esterase (Negative) Urine WBC (Auto) (0-5) /hpf Urine RBC (Auto) (0-4) /hpf U Hyaline Cast (Auto) (0-5) /lpf U Epithel Cells (Auto) (0-5) /lpf Urine Bacteria (Auto) (Negative) Salicylates (2.8-20) mg/dl Urine Opiates Screen (Neg) Ur Methadone, Qual (Neg) Acetaminophen 81 H (10-30) ug/ml Urine Barbiturates (Neg) Ur Phencyclidine (PCP) (Neg) U Amphetamin/Meth Scrn (Neg) MDMA (Ecstasy) Screen (Neg) U Benzodiazepines Scrn (Neg) Ur Cocaine Metabolite (Neg) U Marijuana (THC) Screen (Neg) Ethyl Alcohol mg/dL (0-3) mg/dl 04/15/19 04/14/19 04/14/19 Range/Units 06:54 20:25 20:25 WBC 13.28 H (4.8-10.8) K/uL RBC 4.37 (4.2-5.4) M/uL Hgb 13.7 (12.0-16.0) g/dL Hct 39.9 (37-47) % MCV 91.3 (80-100) fL MCH 31.4 (25-34) pg MCHC 34.3 (32-36) g/dL RDW Std Deviation 44.1 (36.4-46.3) fL RDW Coeff of Cammie 13.2 (11.5-14.5) % Plt Count 220 (130-400) K/uL MPV 9.3 (7.4-10.4) fL Immature Gran % (Auto) % Neut % (Auto) % Lymph % (Auto) % [place] % (Auto) % Eos % (Auto) % Baso % (Auto) % Immature Gran # (Auto) (0.00-0.02) K/uL Neut # (Auto) (1.4-6.5) K/uL Lymph # (Auto) (1.2-3.4) K/uL [place] # (Auto) (0.11-0.59) K/uL Eos # (Auto) (0-0.5) K/uL Baso # (Auto) (0-0.2) K/uL PT (9.0-12.0) Seconds INR (0.9-1.1) Sodium (136-145) mmol/L Potassium (3.5-5.1) mmol/L Chloride (98-107) mmol/L Carbon Dioxide (21-32) mmol/L Anion Gap (3-11) BUN (7-18) mg/dl Creatinine (0.6-1.2) mg/dl Est Cr Clr Drug Dosing ml/min Est GFR ( Amer) Est GFR (Non-Af Amer) BUN/Creatinine Ratio (10-20) Glucose (70-99) mg/dl Calcium (8.5-10.1) mg/dl Total Bilirubin (0.2-1) mg/dl Direct Bilirubin (0-0.2) mg/dl AST (15-37) U/L ALT (12-78) U/L Alkaline Phosphatase (45-117) U/L Total Protein (6.4-8.2) gm/dl Albumin (3.4-5.0) gm/dl Globulin (2.5-4.0) gm/dl Albumin/Globulin Ratio (0.9-2) TSH (0.300-4.500) uIu/ml HCG, Qual Negative (Negative) Urine Color Urine Appearance (Clear) Urine pH (4.5-7.5) Ur Specific [place] (1.000-1.030) Urine Protein (Negative) Urine Glucose (UA) (Negative) Urine Ketones (Negative) Urine Blood (Negative) Urine Nitrite (Negative) Urine Bilirubin (Negative) Urine Urobilinogen (Negative) Ur Leukocyte Esterase (Negative) Urine WBC (Auto) (0-5) /hpf Urine RBC (Auto) (0-4) /hpf U Hyaline Cast (Auto) (0-5) /lpf U Epithel Cells (Auto) (0-5) /lpf Urine Bacteria (Auto) (Negative) Salicylates (2.8-20) mg/dl Urine Opiates Screen (Neg) Ur Methadone, Qual (Neg) Acetaminophen (10-30) ug/ml Urine Barbiturates (Neg) Ur Phencyclidine (PCP) (Neg) U Amphetamin/Meth Scrn (Neg) MDMA (Ecstasy) Screen (Neg) U Benzodiazepines Scrn (Neg) Ur Cocaine Metabolite (Neg) U Marijuana (THC) Screen (Neg) Ethyl Alcohol mg/dL < 3.0 (0-3) mg/dl 04/14/19 04/14/19 04/14/19 Range/Units 20:25 20:25 20:25 WBC 9.47 (4.8-10.8) K/uL RBC 4.33 (4.2-5.4) M/uL Hgb 13.8 (12.0-16.0) g/dL Hct 39.4 (37-47) % MCV 91.0 (80-100) fL MCH 31.9 (25-34) pg MCHC 35.0 (32-36) g/dL RDW Std Deviation 43.6 (36.4-46.3) fL RDW Coeff of Cammie 13.1 (11.5-14.5) % Plt Count 244 (130-400) K/uL MPV 9.2 (7.4-10.4) fL Immature Gran % (Auto) 0.2 % Neut % (Auto) 54.4 % Lymph % (Auto) 40.3 % [place] % (Auto) 4.0 % Eos % (Auto) 0.7 % Baso % (Auto) 0.4 % Immature Gran # (Auto) 0.02 (0.00-0.02) K/uL Neut # (Auto) 5.14 (1.4-6.5) K/uL Lymph # (Auto) 3.82 H (1.2-3.4) K/uL [place] # (Auto) 0.38 (0.11-0.59) K/uL Eos # (Auto) 0.07 (0-0.5) K/uL Baso # (Auto) 0.04 (0-0.2) K/uL PT (9.0-12.0) Seconds INR (0.9-1.1) Sodium 139 (136-145) mmol/L Potassium 3.7 (3.5-5.1) mmol/L Chloride 107 (98-107) mmol/L Carbon Dioxide 22 (21-32) mmol/L Anion Gap 10.0 (3-11) BUN 6 L (7-18) mg/dl Creatinine 1.07 (0.6-1.2) mg/dl Est Cr Clr Drug Dosing 67.5 ml/min Est GFR ( Amer) 75.7 Est GFR (Non-Af Amer) 65.3 BUN/Creatinine Ratio 5.7 L (10-20) Glucose 104 H (70-99) mg/dl Calcium 8.5 (8.5-10.1) mg/dl Total Bilirubin 0.4 (0.2-1) mg/dl Direct Bilirubin (0-0.2) mg/dl AST 16 (15-37) U/L ALT 24 (12-78) U/L Alkaline Phosphatase 48 (45-117) U/L Total Protein 7.0 (6.4-8.2) gm/dl Albumin 3.8 (3.4-5.0) gm/dl Globulin 3.2 (2.5-4.0) gm/dl Albumin/Globulin Ratio 1.2 (0.9-2) TSH 1.180 (0.300-4.500) uIu/ml HCG, Qual (Negative) Urine Color Urine Appearance (Clear) Urine pH (4.5-7.5) Ur Specific [place] (1.000-1.030) Urine Protein (Negative) Urine Glucose (UA) (Negative) Urine Ketones (Negative) Urine Blood (Negative) Urine Nitrite (Negative) Urine Bilirubin (Negative) Urine Urobilinogen (Negative) Ur Leukocyte Esterase (Negative) Urine WBC (Auto) (0-5) /hpf Urine RBC (Auto) (0-4) /hpf U Hyaline Cast (Auto) (0-5) /lpf U Epithel Cells (Auto) (0-5) /lpf Urine Bacteria (Auto) (Negative) Salicylates 2.7 L (2.8-20) mg/dl Urine Opiates Screen (Neg) Ur Methadone, Qual (Neg) Acetaminophen 371 H* (10-30) ug/ml Urine Barbiturates (Neg) Ur Phencyclidine (PCP) (Neg) U Amphetamin/Meth Scrn (Neg) MDMA (Ecstasy) Screen (Neg) U Benzodiazepines Scrn (Neg) Ur Cocaine Metabolite (Neg) U Marijuana (THC) Screen (Neg) Ethyl Alcohol mg/dL (0-3) mg/dl 04/14/19 04/14/19 Range/Units 19:50 19:50 WBC (4.8-10.8) K/uL RBC (4.2-5.4) M/uL Hgb (12.0-16.0) g/dL Hct (37-47) % MCV (80-100) fL MCH (25-34) pg MCHC (32-36) g/dL RDW Std Deviation (36.4-46.3) fL RDW Coeff of Cammie (11.5-14.5) % Plt Count (130-400) K/uL MPV (7.4-10.4) fL Immature Gran % (Auto) % Neut % (Auto) % Lymph % (Auto) % [place] % (Auto) % Eos % (Auto) % Baso % (Auto) % Immature Gran # (Auto) (0.00-0.02) K/uL Neut # (Auto) (1.4-6.5) K/uL Lymph # (Auto) (1.2-3.4) K/uL [place] # (Auto) (0.11-0.59) K/uL Eos # (Auto) (0-0.5) K/uL Baso # (Auto) (0-0.2) K/uL PT (9.0-12.0) Seconds INR (0.9-1.1) Sodium (136-145) mmol/L Potassium (3.5-5.1) mmol/L Chloride (98-107) mmol/L Carbon Dioxide (21-32) mmol/L Anion Gap (3-11) BUN (7-18) mg/dl Creatinine (0.6-1.2) mg/dl Est Cr Clr Drug Dosing ml/min Est GFR ( Amer) Est GFR (Non-Af Amer) BUN/Creatinine Ratio (10-20) Glucose (70-99) mg/dl Calcium (8.5-10.1) mg/dl Total Bilirubin (0.2-1) mg/dl Direct Bilirubin (0-0.2) mg/dl AST (15-37) U/L ALT (12-78) U/L Alkaline Phosphatase (45-117) U/L Total Protein (6.4-8.2) gm/dl Albumin (3.4-5.0) gm/dl Globulin (2.5-4.0) gm/dl Albumin/Globulin Ratio (0.9-2) TSH (0.300-4.500) uIu/ml HCG, Qual (Negative) Urine Color Yellow Urine Appearance Clear (Clear) Urine pH 5.0 (4.5-7.5) Ur Specific [place] 1.026 (1.000-1.030) Urine Protein Negative (Negative) Urine Glucose (UA) Negative (Negative) Urine Ketones Negative (Negative) Urine Blood Negative (Negative) Urine Nitrite Negative (Negative) Urine Bilirubin Negative (Negative) Urine Urobilinogen Negative (Negative) Ur Leukocyte Esterase 1+ H (Negative) Urine WBC (Auto) 1-5 (0-5) /hpf Urine RBC (Auto) 0-4 (0-4) /hpf U Hyaline Cast (Auto) 1-5 (0-5) /lpf U Epithel Cells (Auto) 20-30 H (0-5) /lpf Urine Bacteria (Auto) Negative (Negative) Salicylates (2.8-20) mg/dl Urine Opiates Screen Neg (Neg) Ur Methadone, Qual Neg (Neg) Acetaminophen (10-30) ug/ml Urine Barbiturates Neg (Neg) Ur Phencyclidine (PCP) Neg (Neg) U Amphetamin/Meth Scrn Neg (Neg) MDMA (Ecstasy) Screen Neg (Neg) U Benzodiazepines Scrn Neg (Neg) Ur Cocaine Metabolite Neg (Neg) U Marijuana (THC) Screen Neg (Neg) Ethyl Alcohol mg/dL (0-3) mg/dl PG Care Time/CCT Total # of Minutes Spent Total Time Spent with Patient: Total time spent is greater than 50% in coordination of care (as documented) at patient's floor/unit and/or counseling patient: (1) Intentional acetaminophen overdose Encounter type: initial encounter Qualified Code(s): T39.1X2A - Poisoning by 4-Aminophenol derivatives, intentional self-harm, initial encounter (2) Nausea & vomiting Vomiting Intractability: non-intractable Vomiting type: unspecified Qualified Code(s): R11.2 - Nausea with vomiting, unspecified
[2019-04-16 06:02] LABS: Hematocrit (blood only) 38.5 % (37-47); Hemoglobin 13.2 g/dL (12.0-16.0); Mean Corpuscular Hemoglobin 31.3 pg (25-34); Mean Corpuscular Hgb Conc 34.3 g/dL (32-36); Mean Corpuscular Volume 91.2 fL (80-100); Mean Platelet Volume 9.5 fL (7.4-10.4); Platelet Count 210 K/uL (130-400); RDW Coefficient of Variation 13.4 % (11.5-14.5); RDW Standard Deviation 44.6 fL (36.4-46.3); Red Blood Count 4.22 M/uL (4.2-5.4); White Blood Count 8.21 K/uL (4.8-10.8)
[2019-04-16 06:29] LABS: INR 1.2 (0.9-1.1); Prothrombin Time 12.1 Seconds (9.0-12.0)
[2019-04-16 06:33] LABS: Albumin Level 3.4 gm/dl (3.4-5.0); BUN Creatinine Ratio 7.5 (10-20); Calcium 8.3 mg/dl (8.5-10.1); Creatinine Clr Calc Pharmacy 84.9 ml/min; Est GFR (African American) 101.5; Est GFR (Non-African American) 87.6; Potassium 3.5 mmol/L (3.5-5.1)
[2019-04-16 06:36] LABS: Albumin Globulin Ratio 1.2 (0.9-2); Bilirubin Direct 0.1 mg/dl (0-0.2); Bilirubin,Total 0.5 mg/dl (0.2-1); Globulin 2.8 gm/dl (2.5-4.0); Total Protein 6.2 gm/dl (6.4-8.2)
[2019-04-16] MEDS: NICOTINE POLACRILEX 2 MG GUM MT PRN (08:26)
[2019-04-16] MEDS: FAMOTIDINE 20 MG TAB PO SCH (08:45)
[2019-04-16] MEDS: ENOXAPARIN INJ 40 MG/0.4 ML SYR SQ SCH (09:18)
--- NOTE | 2019-04-16 13:48 | Hospitalist Progress Note ---
Date of Service April 16, 2019 Assessment & Plan (1) Intentional acetaminophen overdose: - Acetylcysteine protocol completed. - Suicide precautions. - Tylenol level 371 --> 81 --> 3. - Psych consulted, appreciate input. 302 warrant completed, will require inpt facility at discharge. (2) Anxiety disorder: - Ativan prn. (3) PCOS (polycystic ovarian syndrome): - On Metformin - holding as inpt. (4) Glaucoma: - Continue home eye drops. Dispo: Discharge pending placement at inpatient psych facility. Subjective Pt. is doing well today. She spoke with her aunt KARINE via phone call and told her she was admitted to the hospital. Her aunt is planning to call her father as well. The patient does not want her father contacted because "he has a narcissistic who will get involved". Psych following, appreciate input. 302 warrant was completed. Review of Systems Review of Systems: All systems reviewed & are unremarkable except as noted in HPI & below Constitutional: no fever, no chills, no fatigue and no weakness Respiratory: no cough, no dyspnea, no dyspnea on exertion and no wheezing Cardiovascular: no chest pain, no palpitations and no edema Gastrointestinal: no abdominal pain, no nausea and no constipation Genitourinary: no difficulty urinating Musculoskeletal: no back pain and no joint pain Integumentary: no non-healing lesions Physical Exam Physical Exam: General: Resting comfortably HEENT: NC/AT; PERRLA with EOMI; [place] conjunctiva, MMM. No erythema of posterior pharynx Neck: Supple and nontender Cardiac: RRR Lungs: CTA bilaterally Abdomen: Bowel normoactive X 4; Nontender to palpation Extremities: Warm. No edema present Neuro: No focal weakness Skin: No rash Results & Data Vital Signs (Past 12 Hours) Vital Signs Temp Pulse Resp BP Pulse Ox 04/16/19 11:27 36.6 C 86 18 131/80 98 04/16/19 07:32 36.6 C 79 18 123/78 97 04/16/19 04:00 36.7 C 82 16 128/71 95 Laboratory Results 04/16/19 04/16/19 04/16/19 Range/Units 05:37 05:37 05:37 WBC (4.8-10.8) K/uL RBC (4.2-5.4) M/uL Hgb (12.0-16.0) g/dL Hct (37-47) % MCV (80-100) fL MCH (25-34) pg MCHC (32-36) g/dL RDW Std Deviation (36.4-46.3) fL RDW Coeff of Cammie (11.5-14.5) % Plt Count (130-400) K/uL MPV (7.4-10.4) fL PT 12.1 H (9.0-12.0) Seconds INR 1.2 H (0.9-1.1) Sodium 140 (136-145) mmol/L Potassium 3.5 (3.5-5.1) mmol/L Chloride 112 H (98-107) mmol/L Carbon Dioxide 22 (21-32) mmol/L Anion Gap 6.0 (3-11) BUN 6 L (7-18) mg/dl Creatinine 0.84 (0.6-1.2) mg/dl Est Cr Clr Drug Dosing 84.9 ml/min Est GFR ( Amer) 101.5 Est GFR (Non-Af Amer) 87.6 BUN/Creatinine Ratio 7.5 L (10-20) Glucose 85 (70-99) mg/dl Calcium 8.3 L (8.5-10.1) mg/dl Total Bilirubin 0.5 (0.2-1) mg/dl Direct Bilirubin 0.1 (0-0.2) mg/dl AST 10 L (15-37) U/L ALT 23 (12-78) U/L Alkaline Phosphatase 39 L (45-117) U/L Total Protein 6.2 L (6.4-8.2) gm/dl Albumin 3.4 (3.4-5.0) gm/dl Globulin 2.8 (2.5-4.0) gm/dl Albumin/Globulin Ratio 1.2 (0.9-2) Acetaminophen 3 L (10-30) ug/ml 04/16/19 Range/Units 05:37 WBC 8.21 (4.8-10.8) K/uL RBC 4.22 (4.2-5.4) M/uL Hgb 13.2 (12.0-16.0) g/dL Hct 38.5 (37-47) % MCV 91.2 (80-100) fL MCH 31.3 (25-34) pg MCHC 34.3 (32-36) g/dL RDW Std Deviation 44.6 (36.4-46.3) fL RDW Coeff of Cammie 13.4 (11.5-14.5) % Plt Count 210 (130-400) K/uL MPV 9.5 (7.4-10.4) fL PT (9.0-12.0) Seconds INR (0.9-1.1) Sodium (136-145) mmol/L Potassium (3.5-5.1) mmol/L Chloride (98-107) mmol/L Carbon Dioxide (21-32) mmol/L Anion Gap (3-11) BUN (7-18) mg/dl Creatinine (0.6-1.2) mg/dl Est Cr Clr Drug Dosing ml/min Est GFR ( Amer) Est GFR (Non-Af Amer) BUN/Creatinine Ratio (10-20) Glucose (70-99) mg/dl Calcium (8.5-10.1) mg/dl Total Bilirubin (0.2-1) mg/dl Direct Bilirubin (0-0.2) mg/dl AST (15-37) U/L ALT (12-78) U/L Alkaline Phosphatase (45-117) U/L Total Protein (6.4-8.2) gm/dl Albumin (3.4-5.0) gm/dl Globulin (2.5-4.0) gm/dl Albumin/Globulin Ratio (0.9-2) Acetaminophen (10-30) ug/ml PG Care Time/CCT Total # of Minutes Spent Total Time Spent with Patient: Total time spent is greater than 50% in coordination of care (as documented) at patient's floor/unit and/or counseling patient: (1) Intentional acetaminophen overdose Encounter type: initial encounter Qualified Code(s): T39.1X2A - Poisoning by 4-Aminophenol derivatives, intentional self-harm, initial encounter
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
== END 2019-04-16 19:30 | DRG 918 ==
LOC: ED 19:16 → SUATTDRO 23:21 → 2S 23:21
DX: R11.2 Nausea with vomiting, unspecified; F17.210 Nicotine dependence, cigarettes, uncomplicated; E28.2 Polycystic ovarian syndrome; E88.81 Metabolic syndrome and other insulin resistance; T39.1X2A Poisoning by 4-Aminophenol derivatives, intentional self-harm, initial encounter; F32.9 Major depressive disorder, single episode, unspecified; H40.9 Unspecified glaucoma; F41.9 Anxiety disorder, unspecified

== ENCOUNTER 2022-03-08 19:57 | Inpatient (IN) ==
[2022-03-08] MEDS ORDERED: ONDANSETRON INJ 2 MG/ML 2 ML VIAL IV STA (20:17)
[2022-03-08] MEDS ORDERED: THIAMINE HCL 200 MG in SODIUM CHLORIDE 0.9% 50 ML IV STA (20:19)
--- NOTE | 2022-03-08 20:40 | Emergency Department Note ---
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 catheter is seen. Reproductive organs: There is a cystic appearing lesion in the left adnexa, not well seen on prior exam, measuring approximately 37 mm in diameter. Bowel: Unremarkable appearance of the bowel. The appendix is normal. Lymph nodes Retroperitoneal: Unremarkable. Pelvic: Unremarkable. Mesenteric: Unremarkable. Peritoneum: Minimal stranding is in the right lower quadrant, nonspecific. No pneumoperitoneum is seen. Vessels: Unremarkable. Abdominal wall: A fat-containing umbilical hernia is seen. Bones: Unremarkable. IMPRESSION: No acute abnormalities are seen. There is interval development of a 37 mm left adnexal cystic lesion, likely an ovarian cyst. ACT 112: Negative or not required by law. Electronically signed by: Bharat Castro M.D. 03/08/2022 9:[address] 03/08/22 20:19 CT chest diagnostic wo con CLINICAL HISTORY: ams TECHNIQUE: Multidetector row helical CT of the chest was performed. Coronal and sagittal reformations were obtained. Automated dose lowering techniques and/or adjustment according to patient size were utilized for this exam. Comparison: Prior CTA chest 1 2006 FINDINGS: Lungs and pleura: Groundglass opacities are seen in the perihilar lung favoring the upper lobes. There is a 3 mm nodule in the left upper lobe (series 10 image 98) and a 3 mm nodule in the left lower lobe (image 180). Within limits of differences in technique, this appears unchanged from prior exam. Heart and pericardium: Heart size is normal. No pericardial effusion. Vessels: Unremarkable. Mediastinum and ivory: Subcentimeter lymph nodes are seen. Chest wall and lower neck: Subcentimeter axillary lymph nodes noted. Abdomen: Unremarkable. Bones: Unremarkable. IMPRESSION: Groundglass opacities in the perihilar lungs compatible with atelectasis with or without superimposed aspiration/pneumonia. Subcentimeter lymph nodes in the ivory and mediastinum may be reactive. ACT 112: Negative or not required by law. Electronically signed by: Bharat Castro M.D. 03/08/2022 9:34 PM Discharge Plan Visit Data Chief Complaint: Altered Mental Status Stated Complaint: ALTERED MENTAL STATUS ED Provider: Jhoan Joseph Discharge Problem: Depression with suicidal ideation, Suicide gesture, Overdose by acetaminophen, Hypoxia, Rhabdomyolysis Patient Disposition: Admitted As Inpatient Discharge Instructions Interventions: ED Discharge Assessment Last Done: 03/08/22 23:35 Forms Stand Alone Forms: [facility] Prescriptions Prescriptions: No Action prazosin 1 mg capsule 1 mg PO HS Qty: 30 2RF (DME) blood pressure monitor [Blood Pressure Kit] Kit See Rx Instructions .Route Qty: 1 0RF Rx Instructions: As directed magnesium oxide 400 mg (241.3 mg magnesium) tablet 400 mg PO DAILY latanoprost 0.005 % drops 1 drops OP QPM multivitamin with iron [Daily Vitamin with Iron] tablet 1 tab PO DAILY acetaminophen [Tylenol] 325 mg Tablet 650 mg PO TID PRN (Reason: PAIN/FEVER) trazodone 50 mg tablet 50 mg PO HS venlafaxine 150 mg capsule,extended release 24hr 150 mg PO BID Rx Instructions: TAKES QAM & AT 1300 risperidone 2 mg tablet 2 mg PO HS cyanocobalamin (vitamin B-12) [Vitamin B-12] 500 mcg Tablet 500 mcg PO DAILY calcium carbonate [Tums 500] 500 mg calcium (1,250 mg) Tablet,Chewable 1,000 mg PO TID PRN (Reason: GI UPSET/INDIGESTION) omega 1-abt-dic-fish oil [Fish Oil] 1,000 mg (120 mg-180 mg) Capsule 1 cap PO DAILY Rx Instructions: MED LIST FROM THE [facility] D/C Referrals Referrals: Lance Luu III, CRNP [Primary Care Provider] -
[2022-03-08 20:59] LABS: Base Excess ABG -3.9 mEq/L (-9-1.8); HCO3 ABG 21 mmol/L (19-24); Oxygen Saturation ABG 98.6 % (90-95); PCO2 ABG 36 mmHg (35-46); PO2 ABG 86 mmHg (80-95); pH ABG 7.37 (7.35-7.45)
[2022-03-08 21:00] LABS: Pregnancy Test, Serum Negative (Negative)
[2022-03-08 21:03] LABS: INR 1.1 (0.9-1.1); Partial Thromboplastin Ratio 0.9; Partial Thromboplastin Time 24.5 Seconds (21.0-31.0); Prothrombin Time 11.9 Seconds (9.0-12.0)
[2022-03-08 21:09] LABS: Anion Gap 11 (3-11); BUN Creatinine Ratio 8.7 (10-20); Blood Urea Nitrogen 9 mg/dl (6-23); Calcium 9.4 mg/dl (8.5-10.1); Carbon Dioxide 21 mmol/L (21-32); Chloride 108 mmol/L (98-107); Est GFR (African American) 76.7 ml/min; Est GFR (Non-African American) 66.2 ml/min; Glucose 111 mg/dl (70-99(Fasting)); Potassium 3.6 mmol/L (3.5-5.1); Sodium 140 mmol/L (136-145)
[2022-03-08 21:10] LABS: Appearance Urine Clear (Clear); Bacteria Urine Automated Negative (Negative); Bilirubin Urine Negative (Negative); Blood Urine Negative (Negative); Color Urine Yellow; Epithelial Cell Urine Auto 20-30 /lpf (0-5); Glucose Urine UA Negative (Negative); Ketones Urine Negative (Negative); Leukocyte Esterase Urine Negative (Negative); Nitrite Urine Negative (Negative); Protein Urine Trace (Negative); RBC Urine Automated 0-4 /hpf (0-4); Specific Gravity Urine 1.023 (1.000-1.030); Urobilinogen Urine Negative (Negative); pH Urine 5.5 (4.5-7.5)
[2022-03-08 21:13] LABS: Basophils # (auto) 0.04 K/uL (0-0.2); Basophils % (auto) 0.3 %; Eosinophils % (auto) 0.7 %; Hematocrit (blood only) 42.8 % (34.1-44.9); Hemoglobin 13.8 g/dl (12.0-16.0); Immature Granulocytes # (auto) 0.05 K/uL (0.00-0.02); Immature Granulocytes % (auto) 0.4 %; Lymphocytes # (auto) 0.94 K/uL (1.2-3.4); Lymphocytes % (auto) 6.8 %; Mean Corpuscular Hemoglobin 28.9 pg (25.0-34.0); Mean Corpuscular Hgb Conc 32.2 g/dL (32.0-36.0); Mean Corpuscular Volume 89.5 fL (80.0-100.0); Mean Platelet Volume 9.5 fL (9.4-12.3); Monocytes % (auto) 3.6 %; Neutrophils # (auto) 12.11 K/uL (1.4-6.5); Neutrophils % (auto) 88.2 %; Platelet Count 215 K/uL (130-400); RDW Coefficient of Variation 15.1 % (11.5-14.5); RDW Standard Deviation 49.6 fL (36.4-46.3); Red Blood Count 4.78 M/uL (3.93-5.22); White Blood Count 13.74 K/ul (4.8-10.8)
[2022-03-08 21:17] LABS: Acetaminophen 9 ug/ml (10-30); Salicylate < 3.0 mg/dl (3.0-30)
[2022-03-08 21:18] LABS: Alanine Aminotransferase 30 U/L (7-52); Albumin Globulin Ratio 1.7 (0.9-2); Albumin Level 4.7 gm/dl (3.4-5.0); Alkaline Phosphatase 49 U/L (34-104); Aspartate Aminotransferase 53 U/L (13-39); Bilirubin,Total 0.5 mg/dl (0.2-1.0); Globulin 2.7 gm/dl (2.5-4.0); Lipase 26 U/L (11-82); Magnesium 2.1 mg/dl (1.7-2.4); Total Protein 7.4 gm/dl (6.0-8.3); Troponin I High Sensitivity 143.4 pg/ml (0-14)
[2022-03-08 21:19] LABS: Allen Test Pos (Pos)
--- NOTE | 2022-03-08 21:26 | CT Scan Report ---
CT head/brain wo con CLINICAL HISTORY: ams Technique: Contiguous axial CT images of the head were acquired from the base of the skull to the juliet theo without intravenous contrast administration. Images were viewed in brain, [facility]. Automated dose lowering techniques and/or adjustment according to patient size were utilized for this exam. Comparison: None available at the time of this dictation. Findings: The ventricles, basal cisterns, and cerebral sulci are normal. There is no acute intracranial hemorrh age or evidence of acute territorial infarction. Neither mass effect, shift of the midline structures , nor abnormal extra-axial fluid collections are shown. Imaged portions of the paranasal sinuses and mastoid air cells are clear. The orbits appear normal. There are no acute fractures of the calvaria or scalp swelling. Incidental note is made of atrophic appearance of the left lobe. Impression: No acute intracranial hemorrhage, no evidence of acute territorial infarction or other acute intracra nial disease process. ACT 112: Negative or not required by law. Electronically signed by: Bharat Castro M.D. 03/08/2022 9:19 PM
[2022-03-08 21:28] LABS: Creatine Kinase 3958 U/L (26-192)
--- NOTE | 2022-03-08 21:32 | CT Scan Report ---
CT cervical spine wo con CLINICAL HISTORY: ams TECHNIQUE: Multidetector row helical CT of the cervical spine was performed without administration of intravenous contrast. Coronal and sagittal reformations were obtained. Automated dose lowering techn iques and/or adjustment according to patient size were utilized for this exam. Comparison: None available at the time of this dictation. FINDINGS: No acute fractures or subluxations are identified. The vertebral body heights and disk spaces are wel l maintained. The alignment is normal. Biapical scarring is seen in the lungs. IMPRESSION: No evidence of acute bony injury. ACT 112: Negative or not required by law. Electronically signed by: Bharat Castro M.D. 03/08/2022 9:29 PM
--- NOTE | 2022-03-08 21:36 | CT Scan Report ---
CT chest diagnostic wo con CLINICAL HISTORY: ams TECHNIQUE: Multidetector row helical CT of the chest was performed. Coronal and sagittal reformations were obtained. Automated dose lowering techniques and/or adjustment according to patient size were u tilized for this exam. Comparison: Prior CTA chest 1 2006 FINDINGS: Lungs and pleura: Groundglass opacities are seen in the perihilar lung favoring the upper lobes. Ther e is a 3 mm nodule in the left upper lobe (series 10 image 98) and a 3 mm nodule in the left lower lo be (image 180). Within limits of differences in technique, this appears unchanged from prior exam. Heart and pericardium: Heart size is normal. No pericardial effusion. Vessels: Unremarkable. Mediastinum and ivory: Subcentimeter lymph nodes are seen. Chest wall and lower neck: Subcentimeter axillary lymph nodes noted. Abdomen: Unremarkable. Bones: Unremarkable. IMPRESSION: Groundglass opacities in the perihilar lungs compatible with atelectasis with or without superimposed aspiration/pneumonia. Subcentimeter lymph nodes in the ivory and mediastinum may be reactive. ACT 112: Negative or not required by law. Electronically signed by: Bharat Castro M.D. 03/08/2022 9:34 PM
--- NOTE | 2022-03-08 21:36 | XRay Report ---
XR chest 1V portable CLINICAL HISTORY: ams TECHNIQUE: Single frontal radiograph of the chest was obtained. Comparison: Comparison is made to chest radiograph 06/08/2021 FINDINGS: No lines and tubes are seen. The cardiomediastinal silhouette is normal. Compared to prior exam, ther e is minimally increased prominence of the perihilar lungs. No evidence of pleural effusion or pneumo thorax. IMPRESSION: Minimally increased prominence of the perihilar lungs may represent atelectasis, pneumonia, and/or as piration. ACT 112: Negative or not required by law. Electronically signed by: Bharat Castro M.D. 03/08/2022 9:35 PM
--- NOTE | 2022-03-08 21:44 | CT Scan Report ---
CT abd pelvis wo con CLINICAL HISTORY: ams TECHNIQUE: Helical axial images of the abdomen and pelvis were obtained. Automated dose lowering tech niques and/or adjustment according to patient size were utilized for this exam. This exam was perfor med without intravenous contrast. COMPARISON: Comparison is made to pelvic ultrasound 12/25/2020 FINDINGS: Lower chest: No acute abnormality Liver: Unremarkable. No focal lesions are seen. Gallbladder and biliary tree: A radiodense gallstone is noted in the dependent portion of the gallbla dder. The gallbladder wall is incompletely evaluated but appears to measure approximately 3 mm in thi ckness. No intra- or extrahepatic biliary ductal dilation. Pancreas: Unremarkable, no focal lesions. Spleen: Unremarkable. Adrenals: Unremarkable. Kidneys and ureters: Unremarkable. Bladder: Franks catheter is seen. Reproductive organs: There is a cystic appearing lesion in the left adnexa, not well seen on prior ex am, measuring approximately 37 mm in diameter. Bowel: Unremarkable appearance of the bowel. The appendix is normal. Lymph nodes Retroperitoneal: Unremarkable. Pelvic: Unremarkable. Mesenteric: Unremarkable. Peritoneum: Minimal stranding is in the right lower quadrant, nonspecific. No pneumoperitoneum is see n. Vessels: Unremarkable. Abdominal wall: A fat-containing umbilical hernia is seen. Bones: Unremarkable. IMPRESSION: No acute abnormalities are seen. There is interval development of a 37 mm left adnexal cystic lesion, likely an ovarian cyst. ACT 112: Negative or not required by law. Electronically signed by: Bharat Castro M.D. 03/08/2022 9:42 PM
[2022-03-08] MEDS ORDERED: DEXTROSE 5% IV ONE ×2 (21:48→22:48)
[2022-03-08] MEDS ORDERED: ACETYLCYSTEINE IV ONE ×2 (21:48→22:48)
[2022-03-08] MEDS ORDERED: AcetylCYSTEINE IV 21 HR REGIMEN (>40KG) IV STA (21:48)
[2022-03-08 21:50] LABS: Amphetamines+Metham, Urine Neg (Neg); Barbiturates, Urine Neg (Neg); Benzodiazepine, Urine Neg (Neg); Cocaine, Urine Neg (Neg); MDMA (Ecstacy), Urine Pos (Neg); Methadone, Urine Neg (Neg); Opiate, Urine Neg (Neg); Phencyclidine, Urine Neg (Neg)
[2022-03-08] MEDS ORDERED: SODIUM CHLORIDE 0.9% 1000ML 1,000 ML IV ONE (22:04)
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
[2022-03-09] MEDS ORDERED: CALCIUM CARBONATE 500 MG CHEWABLE TAB PO PRN (00:31)
[2022-03-09] MEDS ORDERED: ONDANSETRON INJ 2 MG/ML 2 ML VIAL IV PRN (00:31)
[2022-03-09] MEDS ORDERED: NSS + 20MEQ KCL 20 MEQ/1,000 ML BAG IV SCH (01:00)
[2022-03-09 01:27] LABS: Phosphorus 4.2 mg/dl (2.5-4.9)
[2022-03-09] MEDS ORDERED: ACETYLCYSTEINE IV ONE ×2 (02:48→20:00)
[2022-03-09] MEDS ORDERED: DEXTROSE 5% IV ONE ×2 (02:48→20:00)
[2022-03-09] MEDS ORDERED: PIPERACILLIN/TAZOBACTAM 4.5 GM in DEXTROSE 5% 100 ML IV ONE (03:45)
[2022-03-09 06:27] LABS: Basophils # (auto) 0.04 K/uL (0-0.2); Basophils % (auto) 0.3 %; Eosinophils # (auto) 0.13 K/uL (0-0.50); Hematocrit (blood only) 34.3 % (34.1-44.9); Hemoglobin 11.5 g/dl (12.0-16.0); Immature Granulocytes # (auto) 0.05 K/uL (0.00-0.02); Immature Granulocytes % (auto) 0.4 %; Lymphocytes # (auto) 1.52 K/uL (1.2-3.4); Lymphocytes % (auto) 11.8 %; Mean Corpuscular Hemoglobin 28.6 pg (25.0-34.0); Mean Corpuscular Hgb Conc 33.5 g/dL (32.0-36.0); Mean Corpuscular Volume 85.3 fL (80.0-100.0); Mean Platelet Volume 9.1 fL (9.4-12.3); Monocytes # (auto) 0.83 K/uL (0.24-0.82); Monocytes % (auto) 6.5 %; Neutrophils # (auto) 10.26 K/uL (1.4-6.5); Platelet Count 156 K/uL (130-400); RDW Coefficient of Variation 14.9 % (11.5-14.5); RDW Standard Deviation 46.5 fL (36.4-46.3); Red Blood Count 4.02 M/uL (3.93-5.22); White Blood Count 12.83 K/ul (4.8-10.8)
[2022-03-09 06:38] LABS: INR 1.3 (0.9-1.1); Partial Thromboplastin Ratio 0.9; Partial Thromboplastin Time 25.1 Seconds (21.0-31.0); Prothrombin Time 13.6 Seconds (9.0-12.0)
[2022-03-09] MEDS ORDERED: ALBUT/IPRATROP 3MG/0.5MG NEB 3 ML VIAL NEB SCH (07:00)
[2022-03-09 07:10] LABS: Albumin Globulin Ratio 1.8 (0.9-2); Albumin Level 3.4 gm/dl (3.4-5.0); BUN Creatinine Ratio 11.6 (10-20); Bilirubin,Total 0.6 mg/dl (0.2-1.0); Calcium 7.9 mg/dl (8.5-10.1); Creatinine Clr Calc Pharmacy 99.2 ml/min; Est GFR (African American) 124.4 ml/min; Est GFR (Non-African American) 107.4 ml/min; Globulin 1.9 gm/dl (2.5-4.0); Magnesium 1.8 mg/dl (1.7-2.4); Potassium 3.3 mmol/L (3.5-5.1); Total Protein 5.3 gm/dl (6.0-8.3)
--- NOTE | 2022-03-09 07:21 | Electrocardiogram Report ---
Test Reason : Blood Pressure : / mmHG Vent. Rate : 105 BPM Atrial Rate : 105 BPM P-R Int : 130 ms QRS Dur : 080 ms QT Int : 356 ms P-R-T Axes : 138 140 -31 degrees QTc Int : 470 ms Suspect arm lead reversal, interpretation assumes no reversal Unusual P axis, possible ectopic atrial tachycardia Right axis deviation Nonspecific ST abnormality Abnormal ECG Confirmed by Alfred Blake ([id number] on 03/09/2022 7:20:31 AM Referred By: REFERRED SELF Confirmed By:Jared Blake
[2022-03-09] MEDS ORDERED: NORMOSOL-R 1,000 ML IV ONE (07:58)
--- NOTE | 2022-03-09 08:01 | Hospitalist Progress Note ---
Date of Service March 09, 2022 Assessment & Plan (1) Overdose by acetaminophen: Plan: Overdose by acetaminophen with psych history of depression with suicidal ideation/gestures; bipolar 2 disorder; anxiety;depression- Unknown amount and time of ingestion Tylenol level 9 - recheck this afternoon Continue Acetadote per protocol as recommended by poison control follow LFTs and electrolytes Normosol for IVF Consult psychiatry (2) Encephalopathy: Plan: Metabolic encephalopathy or phycologically related or acute delirium - will obtain ECHO as unsure of her reason for being down identified - suicide with intoxication vs. other (cardiac related) - appreciate psych input- will obtain to get medication list from méndez - Continue with electrolyte replacements and time for mentation clearing (3) Depression with suicidal ideation: Plan: Consult psychiatry Risperidone, Trazodone, Venlafaxine - Hold Venlafaxine at this time (4) Elevated troponin: Plan: HScTNI 1047 increased this morning from 143. ECG obtained and without acute elevation - likely demand from above as well as hypoxia- continue to trend- downtrending to 655.4 - ECHO as above- normal LV function with mild to moderate dilation of RV with elevated RVSP (5) Suicide gesture: Plan: See above (6) Acute respiratory failure with hypoxia: Plan: Acute respiratory failure with hypoxia/aspiration pneumonia- Placed on Zosyn 4.5 g IV every 8 hours- downtrending WBC, afebrile overnight, likely de-escelate 9/5 Duonebs every 4 hours while awake and every 2 hours when necessary. Nasal cannula oxygen, titrate to keep pulse ox around 94 to 95% (7) Rhabdomyolysis: Plan: Secondary to unknown down time at home CK 3958- down to 1047 this morning Follow serial laboratories with IV fluids as noted renal function stable and urine output adequate (8) Aspiration pneumonia: Plan: Treatment as above - as above (9) Bipolar 2 disorder: Plan: See above (10) Alcoholism: Plan: History of ETOH level <10 on admit continue with Thiamine (11) PTSD (post-traumatic stress disorder): Plan: See above (12) Anxiety disorder: Plan: As above (13) Depression: Plan: As above Admission and Anticipated Discharge Date Admission Date: March 08, 2022 Subjective HD #1 - found at home by father after not been seen by her neighbors, father found patient down at home, with smashed coffee table and her glasses across the room, and her belongings scattered around her. The patient has no recollection of how she got here or what happened. Father endorses that she recently was discharged from the [facility] with new medications. She is legally blind and taking her medications sounds challenging. He endorses that she was cutting her self prior to the [facility] and was paranoid. She was admitted for Tylenol overdose- level of 9 on admission, and with concern for suicide attempt; with rest of toxicology scree with MDMA awaiting confirmation. She is improved from respiratory standpoint and hemodynamic standpoint. Her CK have downtrended and her renal function is improved. Appreciate psych input. Review of Systems Review of Systems: REVIEW OF SYSTEMS: unable to obtain secondary to patient mentation Physical Exam Physical Exam: PHYSICAL EXAM: General: awake, alert, legally blind, paranoid and anxious appearing Head: Normocephalic, atraumatic Neuro: AAO x 3, speech clear and appropriate, strength intact bilaterally 5/5, sensation intact and equal all extremities and dermatomes, no pronator drift Chest: equal rise and fall of the chest, no accessory muscle use, no heaves or thrills, Clear to auscultation, on room air, Cardiac: Regular rate and rhythm, telemetry reviewed, skin warm dry, cap refill <3 seconds, peripheral pulses +2 no JVD, no murmur, no edema GI: NABS x 4 quadrants, soft, nontender to palpation, no rebound, guarding or tenderness : Franks to gravity Extremities: Normal inspection, no peripheral edema or erythema, calfs nontender to palpation Psych: as above Skin: bruise to left cheek Results & Data Results & Data ([facility]) Vital Signs (Past 12 Hours) Vital Signs Temp Pulse Pulse Resp BP BP Pulse Ox 03/09/22 07:12 86 18 96 03/09/22 07:00 36.7 C 87 20 91/72 L 98 03/09/22 04:00 36.5 C 91 H 16 123/82 98 03/09/22 02:00 94 H 03/09/22 00:31 03/09/22 00:19 36.5 C 104 H 18 134/90 92 03/08/22 22:07 96 H 20 117/84 95 03/08/22 20:48 106 H 98 03/08/22 20:48 109 H 25 H 134/96 98 03/08/22 20:48 03/08/22 20:45 106 H 24 134/96 98 O2 Del Method O2 Flow Rate 03/09/22 07:12 Room Air 03/09/22 07:00 Nasal Cannula 2 03/09/22 04:00 Nasal Cannula 2 03/09/22 02:00 03/09/22 00:31 Nasal Cannula 2 03/09/22 00:19 Nasal Cannula 2 03/08/22 22:07 Room Air 03/08/22 20:48 Nasal Cannula 3 03/08/22 20:48 Nasal Cannula 3 03/08/22 20:48 Nasal Cannula 3 03/08/22 20:45 Nasal Cannula 3 Laboratory Results Abnormal lab results 03/08/22 03/08/22 03/08/22 Range/Units 20:10 20:10 20:10 WBC 13.74 H (4.8-10.8) K/ul Hgb (12.0-16.0) g/dl RDW Std Deviation 49.6 H (36.4-46.3) fL RDW Coeff of Cammie 15.1 H (11.5-14.5) % MPV (9.4-12.3) fL Neut # (Auto) 12.11 H (1.4-6.5) K/uL Lymph # (Auto) 0.94 L (1.2-3.4) K/uL Yancey # (Auto) (0.24-0.82) K/uL Immature Gran # (Auto) 0.05 H (0.00-0.02) K/uL PT (9.0-12.0) Seconds INR (0.9-1.1) ABG O2 Saturation (90-95) % Potassium (3.5-5.1) mmol/L Chloride 108 H (98-107) mmol/L BUN/Creatinine Ratio 8.7 L (10-20) Glucose 111 H (70-99(Fasting)) mg/dl POC Glucose (70-99) mg/dl Calcium (8.5-10.1) mg/dl AST 53 H (13-39) U/L Total Creatine Kinase 3958 H (26-192) U/L Troponin I High Sens 143.4 H* (0-14) pg/ml Total Protein (6.0-8.3) gm/dl Globulin (2.5-4.0) gm/dl Urine Protein (Negative) U Hyaline Cast (Auto) (0-5) /lpf U Epithel Cells (Auto) (0-5) /lpf Salicylates < 3.0 L (3.0-30) mg/dl Acetaminophen 9 L (10-30) ug/ml MDMA (Ecstasy) Screen (Neg) 03/08/22 03/08/22 03/08/22 Range/Units 20:23 20:45 20:51 WBC (4.8-10.8) K/ul Hgb (12.0-16.0) g/dl RDW Std Deviation (36.4-46.3) fL RDW Coeff of Cammie (11.5-14.5) % MPV (9.4-12.3) fL Neut # (Auto) (1.4-6.5) K/uL Lymph # (Auto) (1.2-3.4) K/uL Yancey # (Auto) (0.24-0.82) K/uL Immature Gran # (Auto) (0.00-0.02) K/uL PT (9.0-12.0) Seconds INR (0.9-1.1) ABG O2 Saturation 98.6 H (90-95) % Potassium (3.5-5.1) mmol/L Chloride (98-107) mmol/L BUN/Creatinine Ratio (10-20) Glucose (70-99(Fasting)) mg/dl POC Glucose 106 H (70-99) mg/dl Calcium (8.5-10.1) mg/dl AST (13-39) U/L Total Creatine Kinase (26-192) U/L Troponin I High Sens (0-14) pg/ml Total Protein (6.0-8.3) gm/dl Globulin (2.5-4.0) gm/dl Urine Protein (Negative) U Hyaline Cast (Auto) (0-5) /lpf U Epithel Cells (Auto) (0-5) /lpf Salicylates (3.0-30) mg/dl Acetaminophen (10-30) ug/ml MDMA (Ecstasy) Screen Pos H (Neg) 03/08/22 03/09/2222 Range/Units 20:51 06:13 06:13 WBC 12.83 H (4.8-10.8) K/ul Hgb 11.5 L (12.0-16.0) g/dl RDW Std Deviation 46.5 H (36.4-46.3) fL RDW Coeff of Cammie 14.9 H (11.5-14.5) % MPV 9.1 L (9.4-12.3) fL Neut # (Auto) 10.26 H (1.4-6.5) K/uL Lymph # (Auto) (1.2-3.4) K/uL Yancey # (Auto) 0.83 H (0.24-0.82) K/uL Immature Gran # (Auto) 0.05 H (0.00-0.02) K/uL PT (9.0-12.0) Seconds INR (0.9-1.1) ABG O2 Saturation (90-95) % Potassium (3.5-5.1) mmol/L Chloride (98-107) mmol/L BUN/Creatinine Ratio (10-20) Glucose (70-99(Fasting)) mg/dl POC Glucose (70-99) mg/dl Calcium (8.5-10.1) mg/dl AST (13-39) U/L Total Creatine Kinase (26-192) U/L Troponin I High Sens 1047.8 H* D (0-14) pg/ml Total Protein (6.0-8.3) gm/dl Globulin (2.5-4.0) gm/dl Urine Protein Trace H (Negative) U Hyaline Cast (Auto) 10-30 H (0-5) /lpf U Epithel Cells (Auto) 20-30 H (0-5) /lpf Salicylates (3.0-30) mg/dl Acetaminophen (10-30) ug/ml MDMA (Ecstasy) Screen (Neg) 03/09/22 03/09/22 Range/Units 06:13 06:13 WBC (4.8-10.8) K/ul Hgb (12.0-16.0) g/dl RDW Std Deviation (36.4-46.3) fL RDW Coeff of Cammie (11.5-14.5) % MPV (9.4-12.3) fL Neut # (Auto) (1.4-6.5) K/uL Lymph # (Auto) (1.2-3.4) K/uL Yancey # (Auto) (0.24-0.82) K/uL Immature Gran # (Auto) (0.00-0.02) K/uL PT 13.6 H (9.0-12.0) Seconds INR 1.3 H (0.9-1.1) ABG O2 Saturation (90-95) % Potassium 3.3 L (3.5-5.1) mmol/L Chloride 110 H (98-107) mmol/L BUN/Creatinine Ratio (10-20) Glucose 107 H (70-99(Fasting)) mg/dl POC Glucose (70-99) mg/dl Calcium 7.9 L (8.5-10.1) mg/dl AST 44 H (13-39) U/L Total Creatine Kinase 2391 H (26-192) U/L Troponin I High Sens (0-14) pg/ml Total Protein 5.3 L D (6.0-8.3) gm/dl Globulin 1.9 L (2.5-4.0) gm/dl Urine Protein (Negative) U Hyaline Cast (Auto) (0-5) /lpf U Epithel Cells (Auto) (0-5) /lpf Salicylates (3.0-30) mg/dl Acetaminophen (10-30) ug/ml MDMA (Ecstasy) Screen (Neg) Diagnostic Findings Cervical Spine CT 03/08/22 20:17 CT cervical spine wo con CLINICAL HISTORY: ams TECHNIQUE: Multidetector row helical CT of the cervical spine was performed without administration of intravenous contrast. Coronal and sagittal reformations were obtained. Automated dose lowering techniques and/or adjustment according to patient size were utilized for this exam. Comparison: None available at the time of this dictation. FINDINGS: No acute fractures or subluxations are identified. The vertebral body heights and disk spaces are well maintained. The alignment is normal. Biapical scarring is seen in the lungs. IMPRESSION: No evidence of acute bony injury. ACT 112: Negative or not required by law. Electronically signed by: Bharat Castro M.D. 03/08/2022 9:29 PM Chest X-Ray 03/08/22 20:17 XR chest 1V portable CLINICAL HISTORY: ams TECHNIQUE: Single frontal radiograph of the chest was obtained. Comparison: Comparison is made to chest radiograph 06/08/2021 FINDINGS: No lines and tubes are seen. The cardiomediastinal silhouette is normal. Compared to prior exam, there is minimally increased prominence of the perihilar lungs. No evidence of pleural effusion or pneumothorax. IMPRESSION: Minimally increased prominence of the perihilar lungs may represent atelectasis, pneumonia, and/or aspiration. ACT 112: Negative or not required by law. Electronically signed by: Bharat Castro M.D. 03/08/2022 9:[address] 03/08/22 20:17 CT head/brain wo con CLINICAL HISTORY: ams Technique: Contiguous axial CT images of the head were acquired from the base of the skull to the vertex without intravenous contrast administration. Images were viewed in brain, subdural and bone windows. Automated dose lowering techniques and/or adjustment according to patient size were utilized for this exam. Comparison: None available at the time of this dictation. Findings: The ventricles, basal cisterns, and cerebral sulci are normal. There is no acute intracranial hemorrhage or evidence of acute territorial infarction. Neither mass effect, shift of the midline structures, nor abnormal extra-axial fluid collections are shown. Imaged portions of the paranasal sinuses and mastoid air cells are clear. The orbits appear normal. There are no acute fractures of the calvaria or scalp swelling. Incidental note is made of atrophic appearance of the left lobe. Impression: No acute intracranial hemorrhage, no evidence of acute territorial infarction or other acute intracranial disease process. ACT 112: Negative or not required by law. Electronically signed by: Bharat Castro M.D. 03/08/2022 9:19 PM Abdomen/Pelvis CT 03/08/22 20:19 CT abd pelvis wo con CLINICAL HISTORY: ams TECHNIQUE: Helical axial images of the abdomen and pelvis were obtained. Automated dose lowering techniques and/or adjustment according to patient size were utilized for this exam. This exam was performed without intravenous contrast. COMPARISON: Comparison is made to pelvic ultrasound 12/25/2020 FINDINGS: Lower chest: No acute abnormality Liver: Unremarkable. No focal lesions are seen. Gallbladder and biliary tree: A radiodense gallstone is noted in the dependent portion of the gallbladder. The gallbladder wall is incompletely evaluated but appears to measure approximately 3 mm in thickness. No intra- or extrahepatic biliary ductal dilation. Pancreas: Unremarkable, no focal lesions. Spleen: Unremarkable. Adrenals: Unremarkable. Kidneys and ureters: Unremarkable. Bladder: Rfanks catheter is seen. Reproductive organs: There is a cystic appearing lesion in the left adnexa, not well seen on prior exam, measuring approximately 37 mm in diameter. Bowel: Unremarkable appearance of the bowel. The appendix is normal. Lymph nodes Retroperitoneal: Unremarkable. Pelvic: Unremarkable. Mesenteric: Unremarkable. Peritoneum: Minimal stranding is in the right lower quadrant, nonspecific. No pneumoperitoneum is seen. Vessels: Unremarkable. Abdominal wall: A fat-containing umbilical hernia is seen. Bones: Unremarkable. IMPRESSION: No acute abnormalities are seen. There is interval development of a 37 mm left adnexal cystic lesion, likely an ovarian cyst. ACT 112: Negative or not required by law. Electronically signed by: Bharat Castro M.D. 03/08/2022 9:[address] 03/08/22 20:19 CT chest diagnostic wo con CLINICAL HISTORY: ams TECHNIQUE: Multidetector row helical CT of the chest was performed. Coronal and sagittal reformations were obtained. Automated dose lowering techniques and/or adjustment according to patient size were utilized for this exam. Comparison: Prior CTA chest 1 2006 FINDINGS: Lungs and pleura: Groundglass opacities are seen in the perihilar lung favoring the upper lobes. There is a 3 mm nodule in the left upper lobe (series 10 image 98) and a 3 mm nodule in the left lower lobe (image 180). Within limits of differences in technique, this appears unchanged from prior exam. Heart and pericardium: Heart size is normal. No pericardial effusion. Vessels: Unremarkable. Mediastinum and ivory: Subcentimeter lymph nodes are seen. Chest wall and lower neck: Subcentimeter axillary lymph nodes noted. Abdomen: Unremarkable. Bones: Unremarkable. IMPRESSION: Groundglass opacities in the perihilar lungs compatible with atelectasis with or without superimposed aspiration/pneumonia. Subcentimeter lymph nodes in the ivory and mediastinum may be reactive. ACT 112: Negative or not required by law. Electronically signed by: Bharat Castro M.D. 03/08/2022 9:34 PM Medications Administered Home Medications latanoprost 0.005 % eye drops 1 drops ophthalmic (eye) QPM 05/02/19 [History Confirmed 03/08/22] multivitamin with iron (Daily Vitamin with Iron tablet) 1 tab PO DAILY 05/02/19 [History Confirmed 03/08/22] magnesium oxide 400 mg (241.3 mg magnesium) tablet 400 mg PO DAILY 04/09/21 [History Confirmed 03/08/22] blood pressure monitor (Blood Pressure Kit) #1 ea 06/27/21 [Rx Confirmed 01/28/22] prazosin 1 mg capsule 1 mg PO HS #30 caps 06/27/21 [Rx Confirmed 03/08/22] acetaminophen 325 mg tablet (Tylenol) 650 mg PO TID PRN PAIN/FEVER 03/08/22 [History Confirmed 03/08/22] calcium carbonate 500 mg calcium (1,250 mg) chewable tablet 1,000 mg PO TID PRN GI UPSET/INDIGESTION 03/08/22 [History Confirmed 03/08/22] cyanocobalamin (vitamin B-12) 500 mcg tablet (Vitamin B-12) 500 mcg PO DAILY 03/08/22 [History Confirmed 03/08/22] omega 2-oks-ajk-fish oil 1,000 mg (120 mg-180 mg) capsule (Fish Oil) 1 cap PO DAILY 03/08/22 [History Confirmed 03/08/22] risperidone 2 mg tablet 2 mg PO HS 03/08/22 [History Confirmed 03/08/22] trazodone 50 mg tablet 50 mg PO HS 03/08/22 [History Confirmed 03/08/22] venlafaxine 150 mg capsule,extended release 24 hr 150 mg PO BID 03/08/22 [History Confirmed 03/08/22] Active Medications Albuterol (Albut/Ipratrop 3mg/0.5mg Neb 3 Ml Vial) 3 ml NEB QIDR PRN; Protocol PRN Reason: dyspnea, wheeze Stop: 04/08/22 06:59 Calcium Carbonate (Calcium Carbonate 500 Mg Chewable Tab) 1,000 mg PO TID PRN PRN Reason: GI UPSET/INDIGESTION Stop: 04/08/22 00:30 Cyanocobalamin (Cyanocobalamin (B-12) 500 Mcg Tablet) 500 mcg PO DAILY CIERA Stop: 04/08/22 08:59 Last Admin: 03/09/22 08:23 Dose: 500 mcg Acetylcysteine 7,400 mg/ (Dextrose) 1,037 mls @ 62.5 mls/hr IV ONCE ONE Stop: 03/09/22 18:47 Last Admin: 03/09/22 04:37 Dose: 62.5 mls/hr Piperacillin Sod/Tazobactam (Sod 3.375 gm/ Dextrose) 115 mls @ 28.75 mls/hr IV Q8H CIERA; Protocol Stop: 03/16/22 09:59 Last Admin: 03/09/22 10:26 Dose: 28.8 mls/hr Magnesium Sulfate/Dextrose (Magnesium Sulfate / D5w) 1 gm in 100 mls @ 50 mls/hr IV Q2H [facility]ERA Stop: 03/09/22 11:59 Last Admin: 03/09/22 10:59 Dose: 50 mls/hr Parenteral Electrolytes (Normosol-R) 1,000 mls @ 115 mls/hr IV .Q8H42M [facility]ERA Stop: 04/08/22 07:59 Last Admin: 03/09/22 08:19 Dose: 115 mls/hr Latanoprost (Latanoprost 0.005% Op Soln 2.5 Ml Btl) 1 drops OP QPM CIERA Stop: 04/08/22 20:59 Multivitamins/Folic Acid/Vitamin C (Multivitamin Chewable Tab) 1 tab PO DAILY CIERA Stop: 04/08/22 08:59 Last Admin: 03/09/22 08:23 Dose: 1 tab Ondansetron HCl (Ondansetron Inj 2 Mg/Ml 2 Ml Vial) 4 mg IV Q6H PRN PRN Reason: Nausea Stop: 04/08/22 00:30 Risperidone (Risperidone 2 Mg Tablet) 2 mg PO HS CIERA Stop: 04/08/22 20:59 Trazodone HCl (Trazodone Hcl 50 Mg Tab) 50 mg PO HS CIERA Stop: 04/08/22 20:59 Venlafaxine HCl (Venlafaxine Hcl Xr 150 Mg Capxr) 150 mg PO BID@0900,1300 CIERA Stop: 04/08/22 08:59 Last Admin: 03/09/22 08:22 Dose: Not Given PG Care Time/CCT Total # of Minutes Spent Total Time Spent with Patient: Total time spent is greater than 50% in coordination of care (as documented) at patient's floor/unit and/or counseling patient: Coding Level of Care Code 69430 Subseq Hosp Care Lvl 3 Diagnoses Overdose by acetaminophen T39.1X2A Encounter type: initial encounter Injury intent: intentional self-harm Encephalopathy G93.40 Depression with suicidal ideation F32.A; R45.851 Elevated troponin R77.8 Suicide gesture X83.8XXA Encounter type: initial encounter Acute respiratory failure with hypoxia J96.01 Rhabdomyolysis M62.82 Rhabdomyolysis type: non-traumatic Aspiration pneumonia J69.0 Bipolar 2 disorder F31.81 Alcoholism F10.20 PTSD (post-traumatic stress disorder) F43.10 Anxiety disorder F41.9 Depression F32.9 (1) Suicide gesture Encounter type: initial encounter Qualified Code(s): X83.8XXA - Intentional self-harm by other specified means, initial encounter (2) Rhabdomyolysis Rhabdomyolysis type: non-traumatic Qualified Code(s): M62.82 - Rhabdomyolysis (3) Overdose by acetaminophen Encounter type: initial encounter Injury intent: intentional self-harm Qualified Code(s): T39.1X2A - Poisoning by 4-Aminophenol derivatives, intentional self-harm, initial encounter
[2022-03-09] MEDS ORDERED: POTASSIUM CHLORIDE CRTAB 20 MEQ TABCR PO STA (08:12)
[2022-03-09] MEDS: NORMOSOL-R 1,000 ML IV SCH ×2 (08:19→16:23)
[2022-03-09] MEDS: VENLAFAXINE HCL XR 150 MG CAPXR PO SCH ×2 (08:22→13:15)
[2022-03-09] MEDS: CYANOCOBALAMIN (B-12) 500 MCG TABLET PO SCH (08:23)
[2022-03-09] MEDS: MULTIVITAMIN CHEWABLE TAB PO SCH (08:23)
[2022-03-09] MEDS ORDERED: MAGNESIUM OXIDE 400 MG TAB PO SCH (09:00)
[2022-03-09] MEDS ORDERED: VENLAFAXINE HCL XR 150 MG CAPXR PO SCH (09:00)
[2022-03-09] MEDS: MAGNESIUM SULFATE / D5W 1 GM/100 ML BAG IV SCH ×2 (09:12→10:59)
[2022-03-09] MEDS ORDERED: ALBUT/IPRATROP 3MG/0.5MG NEB 3 ML VIAL NEB PRN (09:25)
[2022-03-09] MEDS: PIPERACILLIN/TAZOBACTAM 3.375 GM in DEXTROSE 5% 100 ML IV SCH ×2 (10:26→17:26)
--- NOTE | 2022-03-09 11:19 | XCELERA ---
[id number]
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
[2022-03-09 17:09] LABS: INR 1.2 (0.9-1.1); Prothrombin Time 12.4 Seconds (9.0-12.0)
[2022-03-09 17:31] LABS: Albumin Level 3.3 gm/dl (3.4-5.0); Bilirubin,Total 0.3 mg/dl (0.2-1.0); Total Protein 5.1 gm/dl (6.0-8.3)
[2022-03-09] MEDS ORDERED: LATANOPROST 0.005% OP SOLN 2.5 ML BTL OP SCH (21:00)
[2022-03-09] MEDS ORDERED: risperiDONE 2 MG TABLET PO SCH (21:00)
[2022-03-09] MEDS ORDERED: traZODone HCL 50 MG TAB PO SCH (21:00)
[2022-03-09] MEDS: LATANOPROST 0.005% OP SOLN 2.5 ML BTL OP SCH (21:28)
[2022-03-09 23:04] LABS: A calco-baum cmplx NotReported Not Detected (NotDetected); Bact fragilis Not Reported Not Detected (NotDetected); C auris Not Reported Not Detected (NotDetected); Calbicans Not Reported Not Detected (NotDetected); Candida glabrata Not Reported Not Detected (NotDetected); Candida krusei Not Reported Not Detected (NotDetected); Cneoformans/gatti Not Reported Not Detected (NotDetected); Cparapsilosis Not Reported Not Detected (NotDetected); Ctropicalis Not Reported Not Detected (NotDetected); E cloacae compx Not Reported Not Detected (NotDetected); Efaecalis Not Reported Not Detected (NotDetected); Efaecium Not Reported Not Detected (NotDetected); Enterobacterales Not Reported Not Detected (NotDetected); Escherichia coli Not Reported Not Detected (NotDetected); H influenzae Not Reported Not Detected (NotDetected); K aerogenes Not Reported Not Detected (NotDetected); Koxytoca Not Reported Not Detected (NotDetected); Kpneumoniae grp Not Reported Not Detected (NotDetected); Lmonocyt Not Reported Not Detected (NotDetected); N meningitidis Not Reported Not Detected (NotDetected); P aeruginosa Not Reported Not Detected (NotDetected); Proteus spp Not Reported Not Detected (NotDetected); Salmonella spp Not Reported Not Detected (NotDetected); Smarcescens Not Reported Not Detected (NotDetected); Staph lugdunensis Not Reported Not Detected (NotDetected); Staph spp. Not Reported DETECTED (NotDetected); Staphaureus Not Reported Not Detected (NotDetected); Staphepi Not Reported DETECTED (NotDetected); Staphylococcus spp. DETECTED (NotDetected); Stenmaltophilia Not Reported Not Detected (NotDetected); Strep agal(GrpB) Not Reported Not Detected (NotDetected); Strep pneum Not Reported Not Detected (NotDetected); Strep pyog (GrpA) Not Reported Not Detected (NotDetected); Strep spp Not Reported Not Detected (NotDetected); mecAC Resistant Gene Not Detected (NotDetected)
[2022-03-09 23:09] LABS: Staphylococcus epidermidis DETECTED (NotDetected)
[2022-03-10] MEDS: NORMOSOL-R 1,000 ML IV SCH ×3 (00:45→17:25)
[2022-03-10] MEDS: PIPERACILLIN/TAZOBACTAM 3.375 GM in DEXTROSE 5% 100 ML IV SCH ×3 (02:23→17:25)
[2022-03-10 07:04] LABS: Basophils # (auto) 0.03 K/uL (0-0.2); Basophils % (auto) 0.3 %; Eosinophils % (auto) 2.2 %; Hematocrit (blood only) 32.4 % (34.1-44.9); Hemoglobin 10.4 g/dl (12.0-16.0); Immature Granulocytes # (auto) 0.03 K/uL (0.00-0.02); Immature Granulocytes % (auto) 0.3 %; Lymphocytes # (auto) 2.31 K/uL (1.2-3.4); Mean Corpuscular Hemoglobin 28.2 pg (25.0-34.0); Mean Corpuscular Hgb Conc 32.1 g/dL (32.0-36.0); Mean Corpuscular Volume 87.8 fL (80.0-100.0); Mean Platelet Volume 9.6 fL (9.4-12.3); Monocytes # (auto) 0.66 K/uL (0.24-0.82); Monocytes % (auto) 7.4 %; Neutrophils # (auto) 5.66 K/uL (1.4-6.5); Neutrophils % (auto) 63.8 %; Platelet Count 153 K/uL (130-400); RDW Coefficient of Variation 15.5 % (11.5-14.5); RDW Standard Deviation 49.8 fL (36.4-46.3); Red Blood Count 3.69 M/uL (3.93-5.22); White Blood Count 8.89 K/ul (4.8-10.8)
[2022-03-10 07:25] LABS: INR 1.2 (0.9-1.1); Partial Thromboplastin Ratio 0.9; Partial Thromboplastin Time 25.4 Seconds (21.0-31.0); Prothrombin Time 12.3 Seconds (9.0-12.0)
[2022-03-10 07:42] LABS: Albumin Globulin Ratio 1.7 (0.9-2); Albumin Level 3.1 gm/dl (3.4-5.0); BUN Creatinine Ratio 4.8 (10-20); Bilirubin,Total 0.3 mg/dl (0.2-1.0); Calcium 7.7 mg/dl (8.5-10.1); Creatinine Clr Calc Pharmacy 83.6 ml/min; Est GFR (African American) 99.4 ml/min; Est GFR (Non-African American) 85.7 ml/min; Globulin 1.8 gm/dl (2.5-4.0); Magnesium 2.1 mg/dl (1.7-2.4); Potassium 3.8 mmol/L (3.5-5.1); Total Protein 4.9 gm/dl (6.0-8.3)
[2022-03-10] MEDS: MULTIVITAMIN CHEWABLE TAB PO SCH ×2 (08:12→08:15)
[2022-03-10] MEDS: CYANOCOBALAMIN (B-12) 500 MCG TABLET PO SCH (08:12)
[2022-03-10 10:07] LABS: INR 1.1 (0.9-1.1); Prothrombin Time 12.1 Seconds (9.0-12.0)
[2022-03-10 10:15] LABS: Albumin Level 3.2 gm/dl (3.4-5.0); Bilirubin Direct 0.1 mg/dl (0-0.2); Bilirubin,Total 0.4 mg/dl (0.2-1.0); Total Protein 5.3 gm/dl (6.0-8.3)
[2022-03-10] MEDS ORDERED: ACETYLCYSTEINE IV ONE (12:45)
[2022-03-10] MEDS ORDERED: DEXTROSE 5% IV ONE (12:45)
--- NOTE | 2022-03-10 13:04 | Hospitalist Progress Note ---
Date of Service March 10, 2022 Assessment & Plan (1) Overdose by acetaminophen: Plan: Overdose by acetaminophen with psych history of depression with suicidal ideation/gestures; bipolar 2 disorder; anxiety;depression- Unknown amount and time of ingestion Tylenol level 9 - recheck this afternoon Continue Acetadote per protocol as recommended by poison control follow LFTs and electrolytes Normosol for IVF Psychiatry following, appreciate recommendations. Continue one-to-one for risk of self-harm, do not discharge her allowed to leave AMA, psych medications held at this time, once medically cleared transition to U Discussed with poison control 03/10 recommended for an additional 16 hours of NAC (2) Encephalopathy: Plan: Metabolic encephalopathy or phycologically related or acute delirium -ED: LV SF normal, mild to moderate right ventricular dilation, right atrial mild dilation. EF 55 to 60%. Normal wall motion. - appreciate psych input, see above - Continue with electrolyte replacements and time for mentation clearing Patient appears at mentation baseline 03/10 (3) Depression with suicidal ideation: Plan: Psychiatric medications held as noted above, psychiatry following. Appreciate recommendations (4) Elevated troponin: Plan: HScTNI 1047 increased this morning from 143. ECG obtained and without acute elevation - likely demand from above as well as hypoxia- continue to trend- downtrending to 655.4 - ECHO as above- normal LV function with mild to moderate dilation of RV with elevated RVSP (5) Suicide gesture: Plan: See above (6) Acute respiratory failure with hypoxia: Plan: Acute respiratory failure with hypoxia/aspiration pneumonia- CTchest: Groundglass opacities concerning for superimposed aspiration pneumonia. Patient at risk of aspiration in the setting of overdose. Will narrow Zosyn to Unasyn. Pleat 5-day course. Pro-Ady ordered Duonebs every 4 hours while awake and every 2 hours when necessary. Nasal cannula oxygen, titrate to keep pulse ox around 94 to 95% (7) Rhabdomyolysis: Plan: Secondary to unknown down time at home CK 3958-downtrending Follow serial laboratories with IV fluids as noted renal function stable and urine output adequate (8) Aspiration pneumonia: Plan: Treatment as above - as above (9) Bipolar 2 disorder: Plan: See above (10) Alcoholism: Plan: History of ETOH level <10 on admit continue with Thiamine (11) PTSD (post-traumatic stress disorder): Plan: See above (12) Anxiety disorder: Plan: As above (13) Depression: Plan: As above Admission and Anticipated Discharge Date Admission Date: March 08, 2022 Subjective Seen at the bedside. Reports she has had some left thigh pain which feels similar to a blood clot she has had before. Not sure of swelling, patient congenitally blind. Denies fever, chills, sweats, chest pressure, chest pressure, difficulty breathing, abdominal pain. Discussed with poison control recommended for an additional 16 hours of nac Review of Systems Review of Systems: All systems reviewed & are unremarkable except as noted in Subjective Physical Exam Physical Exam: General: A&Ox3. NAD. Cooperative. HEENT: Congenitally blind. Hearing intact. Pulm: CTAB A&P. -wheezes, -rales, -rhonchi. Symmetrical chest rise. No increase in work of breathing. No respiratory distress. Cardiac: RRR, -mrg. Radial pulses intact and symmetrical. Abdominal: Nontender, nondistended, soft. BS present. Extremities: Left proximal medial thigh tender to palpation without overlying erythema, warmth, discharge, lesion. Pain is worsened on hip abduction against resistance. Patient does endorse some calf discomfort on the left. No calf asymmetry. Results & Data Results & Data ([facility]) Vital Signs (Past 12 Hours) Vital Signs Temp Pulse Pulse Resp BP Pulse Ox O2 Del Method 03/10/22 08:00 77 03/10/22 11:05 36.7 C 80 18 138/86 96 Room Air 03/10/22 07:05 36.7 C 80 16 94/62 L 97 Room Air 03/10/22 03:40 36.7 C 79 18 100/66 95 Room Air 03/10/22 01:18 84 PG Care Time/CCT Total # of Minutes Spent Total Time Spent with Patient: Total time spent is greater than 50% in coordination of care (as documented) at patient's floor/unit and/or counseling patient: Coding Level of Care Code 39410 Subseq Hosp Care Lvl 3 Diagnoses Overdose by acetaminophen T39.1X2A Encounter type: initial encounter Injury intent: intentional self-harm Encephalopathy G93.40 Depression with suicidal ideation F32.A; R45.851 Elevated troponin R77.8 Suicide gesture X83.8XXA Encounter type: initial encounter Acute respiratory failure with hypoxia J96.01 Rhabdomyolysis M62.82 Rhabdomyolysis type: non-traumatic Aspiration pneumonia J69.0 Bipolar 2 disorder F31.81 Alcoholism F10.20 PTSD (post-traumatic stress disorder) F43.10 Anxiety disorder F41.9 Depression F32.9 (1) Overdose by acetaminophen Encounter type: initial encounter Injury intent: intentional self-harm Qualified Code(s): T39.1X2A - Poisoning by 4-Aminophenol derivatives, intentional self-harm, initial encounter (2) Suicide gesture Encounter type: initial encounter Qualified Code(s): X83.8XXA - Intentional self-harm by other specified means, initial encounter (3) Rhabdomyolysis Rhabdomyolysis type: non-traumatic Qualified Code(s): M62.82 - Rhabdomyolysis
[2022-03-10] MEDS: LIDOCAINE 5% 1 PATCH TD SCH (13:37)
[2022-03-10] MEDS: LATANOPROST 0.005% OP SOLN 2.5 ML BTL OP SCH (20:59)
[2022-03-11 01:18] LABS: INR 1.1 (0.9-1.1); Prothrombin Time 12.1 Seconds (9.0-12.0)
[2022-03-11 01:31] LABS: Albumin Level 3.5 gm/dl (3.4-5.0); Bilirubin,Total 0.3 mg/dl (0.2-1.0); Total Protein 5.6 gm/dl (6.0-8.3)
[2022-03-11] MEDS: ENOXAPARIN 80 MG/0.8 ML SYR SC SCH ×3 (02:00→23:57)
[2022-03-11] MEDS: NORMOSOL-R 1,000 ML IV SCH ×3 (02:07→19:36)
--- NOTE | 2022-03-11 02:09 | Communication Note ---
Date of Service: March 11, 2022 Received message from RN stating that poison control called and informed that patient no longer requires acetylcysteine. Order DC'd at this time.
[2022-03-11] MEDS: PIPERACILLIN/TAZOBACTAM 3.375 GM in DEXTROSE 5% 100 ML IV SCH ×2 (02:14→08:57)
[2022-03-11 06:58] LABS: Basophils # (auto) 0.03 K/uL (0-0.2); Basophils % (auto) 0.3 %; Eosinophils % (auto) 2.2 %; Hematocrit (blood only) 33.5 % (34.1-44.9); Immature Granulocytes # (auto) 0.03 K/uL (0.00-0.02); Immature Granulocytes % (auto) 0.3 %; Lymphocytes % (auto) 34.5 %; Mean Corpuscular Hemoglobin 28.4 pg (25.0-34.0); Mean Corpuscular Hgb Conc 32.8 g/dL (32.0-36.0); Mean Corpuscular Volume 86.6 fL (80.0-100.0); Mean Platelet Volume 9.5 fL (9.4-12.3); Monocytes # (auto) 0.73 K/uL (0.24-0.82); Monocytes % (auto) 7.9 %; Neutrophils # (auto) 5.09 K/uL (1.4-6.5); Neutrophils % (auto) 54.8 %; Platelet Count 179 K/uL (130-400); RDW Coefficient of Variation 15.4 % (11.5-14.5); RDW Standard Deviation 48.9 fL (36.4-46.3); Red Blood Count 3.87 M/uL (3.93-5.22); White Blood Count 9.28 K/ul (4.8-10.8)
--- NOTE | 2022-03-11 07:07 | Ultrasound Report ---
ULTRASOUND LEFT LOWER EXTREMITY VENOUS CLINICAL HISTORY: Left leg pain. COMPARISON STUDY: Bilateral lower extremity venous ultrasound dated 07/13/2006 TECHNIQUE: Real-time, grayscale, and color Doppler sonography of the deep veins of the left lower ext remity was performed from the inguinal crease to the calf. Compression and augmentation were utilized . FINDINGS: There is deep venous thrombosis in the calf within one of the peroneal veins. The remaining calf vessels are patent. The common femoral, superficial femoral, and popliteal veins are patent and normally compressible. The greater saphenous vein and the profunda femoris vein at the junction with the common femoral vein are clear. IMPRESSION: There is deep venous thrombosis identified in the left calf as above. ACT 112: Negative or not required by law. Electronically signed by: Luis Durán M.D. 03/11/2022 7:04 AM
[2022-03-11] MEDS ORDERED: Heparin IV Adult Wt-Based Standard WITH Bolus Protocol IV SCH (07:45)
[2022-03-11 07:54] LABS: Albumin Globulin Ratio 1.8 (0.9-2); Albumin Level 3.5 gm/dl (3.4-5.0); BUN Creatinine Ratio 3.5 (10-20); Bilirubin,Total 0.4 mg/dl (0.2-1.0); Calcium 8.3 mg/dl (8.5-10.1); Creatinine Clr Calc Pharmacy 81.1 ml/min; Est GFR (African American) 96.6 ml/min; Est GFR (Non-African American) 83.3 ml/min; Potassium 3.8 mmol/L (3.5-5.1); Total Protein 5.5 gm/dl (6.0-8.3)
[2022-03-11] MEDS ORDERED: HEPARIN SOD (PORCINE) 1000 UNIT/ML IV ONE (08:30)
[2022-03-11 08:57] LABS: INR 1.2 (0.9-1.1); Partial Thromboplastin Ratio 1.2; Partial Thromboplastin Time 32.3 Seconds (21.0-31.0); Prothrombin Time 12.2 Seconds (9.0-12.0)
[2022-03-11] MEDS: CYANOCOBALAMIN (B-12) 500 MCG TABLET PO SCH (08:58)
[2022-03-11] MEDS: LIDOCAINE 5% 1 PATCH TD SCH (08:58)
[2022-03-11] MEDS: MULTIVITAMIN CHEWABLE TAB PO SCH (08:58)
--- NOTE | 2022-03-11 10:09 | Hospitalist Progress Note ---
Date of Service March 11, 2022 Assessment & Plan (1) Overdose by acetaminophen: Plan: Overdose by acetaminophen with psych history of depression with suicidal ideation/gestures; bipolar 2 disorder; anxiety;depression- Unknown amount and time of ingestion Tylenol level 9 - recheck this afternoon Continue Acetadote per protocol as recommended by poison control follow LFTs and electrolytes Normosol for IVF Psychiatry following, appreciate recommendations. Continue one-to-one for risk of self-harm, do not discharge her allowed to leave AMA, psych medications held at this time, once medically cleared transition to BHU. Undergoing transition to warfarin for DVT at this time. Discussed with poison control 03/10 recommended for an additional 16 hours of NAC, has completed NAC protocol overnight of (2) Encephalopathy: Plan: Metabolic encephalopathy or phycologically related or acute delirium -ED: LV SF normal, mild to moderate right ventricular dilation, right atrial mild dilation. EF 55 to 60%. Normal wall motion. - appreciate psych input, see above - Continue with electrolyte replacements and time for mentation clearing Patient appears at mentation baseline 03/10 (3) Depression with suicidal ideation: Plan: Psychiatric medications held as noted above, psychiatry following. Appreciate recommendations (4) Elevated troponin: Plan: HScTNI 1047 increased this morning from 143. ECG obtained and without acute elevation - likely demand from above as well as hypoxia- continue to trend- downtrending to 655.4 - ECHO as above- normal LV function with mild to moderate dilation of RV with elevated RVSP (5) Suicide gesture: Plan: See above (6) Acute respiratory failure with hypoxia: Plan: Acute respiratory failure with hypoxia/aspiration pneumonia- CTchest: Groundglass opacities concerning for superimposed aspiration pneumonia. Patient at risk of aspiration in the setting of overdose. Will narrow Zosyn to Unasyn. Pleat 5-day course. Pro-Ady ordered Duonebs every 4 hours while awake and every 2 hours when necessary. Nasal cannula oxygen, titrate to keep pulse ox around 94 to 95% (7) Rhabdomyolysis: Plan: Secondary to unknown down time at home CK 3958 at peak -downtrending Follow serial laboratories with IV fluids as noted renal function stable and urine output adequate (8) Aspiration pneumonia: Plan: Treatment as above - as above (9) Bipolar 2 disorder: Plan: See above (10) Alcoholism: Plan: History of ETOH level <10 on admit continue with Thiamine (11) PTSD (post-traumatic stress disorder): Plan: See above (12) Anxiety disorder: Plan: As above (13) Depression: Plan: As above (14) DVT (deep venous thrombosis): Plan: - Patient with leg/thigh pain 03/10. - Ultrasound lower extremity, left: DVT of the left peroneal vein. Started on Lovenox 1M PK twice daily Deferred DOAC for concerns of hepatic dysfunction/Tylenol overdose Will initiate warfarin load/transition. Admission and Anticipated Discharge Date Admission Date: March 08, 2022 Subjective Seen at the bedside. Left thigh pain unchanged. Note she had been prescribed an estrogen supplement from her [facility] but had not taken this. Aware that she has a blood clot, has been started on Lovenox twice daily. Would defer DOAC's for her given concern for hepatic dysfunction and Tylenol overdose, patient has been on warfarin before and anticipate a bridge to warfarin. Will continue Lovenox, and start warfarin bridge for DVT. Patient agreeable to this. Denies chest pain, chest pressure, lightheadedness, dizziness, abdominal pain, shortness of breath, difficulty breathing today. Review of Systems Review of Systems: All systems reviewed & are unremarkable except as noted in Subjective Physical Exam Physical Exam: General: A&Ox3. NAD. Cooperative. HEENT: Congenitally blind. Hearing intact. Pulm: CTAB A&P. -wheezes, -rales, -rhonchi. Symmetrical chest rise. No increase in work of breathing. No respiratory distress. Cardiac: RRR, -mrg. Radial pulses intact and symmetrical. Abdominal: Nontender, nondistended, soft. BS present. Extremities: Left proximal medial thigh tender to palpation without overlying erythema, warmth, discharge, lesion. Pain is worsened on hip abduction against resistance. Patient does endorse some calf discomfort on the left. No calf asymmetry. Results & Data Results & Data ([facility]) Vital Signs (Past 12 Hours) Vital Signs Temp Pulse Pulse Resp BP Pulse Ox O2 Del Method 03/11/22 08:00 77 03/11/22 07:40 36.8 C 88 20 111/69 97 Room Air 03/11/22 03:09 36.8 C 78 18 116/70 96 Room Air 03/10/22 22:19 87 PG Care Time/CCT Total # of Minutes Spent Total Time Spent with Patient: Total time spent is greater than 50% in coordination of care (as documented) at patient's floor/unit and/or counseling patient: Coding Level of Care Code 98723 Subseq Hosp Care Lvl 2 Diagnoses Overdose by acetaminophen T39.1X2A Encounter type: initial encounter Injury intent: intentional self-harm Encephalopathy G93.40 Depression with suicidal ideation F32.A; R45.851 Elevated troponin R77.8 Suicide gesture X83.8XXA Encounter type: initial encounter Acute respiratory failure with hypoxia J96.01 Rhabdomyolysis M62.82 Rhabdomyolysis type: non-traumatic Aspiration pneumonia J69.0 Bipolar 2 disorder F31.81 Alcoholism F10.20 PTSD (post-traumatic stress disorder) F43.10 Anxiety disorder F41.9 Depression F32.9 DVT (deep venous thrombosis) I82.409 (1) Overdose by acetaminophen Encounter type: initial encounter Injury intent: intentional self-harm Qualified Code(s): T39.1X2A - Poisoning by 4-Aminophenol derivatives, intentional self-harm, initial encounter (2) Suicide gesture Encounter type: initial encounter Qualified Code(s): X83.8XXA - Intentional self-harm by other specified means, initial encounter (3) Rhabdomyolysis Rhabdomyolysis type: non-traumatic Qualified Code(s): M62.82 - Rhabdomyolysis
--- NOTE | 2022-03-11 13:25 | Psychiatric Progress Note ---
Date of Service March 11, 2022 Impression / Recommendations Impression This is a 41 yo admitted medically following an intentional overdose suicide attempt. Diagnostically consistent with unspecified depression, continues to have some visual hallucinations-possibly due to delirium vs congenital blindness, hx unspecified psychosis and does present with some paranoia, irritability and noted to have hypervigilance/startles easily with noises from her IV pole. Acute risk of self-harm remains elevated and high given suicide attempt requiring medical admission, history of prior attempt, impulsivity, social isolation, unwillingness to seek treatment, limited insight, possible substance use, and history of psychosis. Given elevated risk of harm to self they meet criteria for inpatient psychiatric care for diagnostic clarification, safety/stabilization, development of additional coping skills, medication management and disposition/safety planning once medically stable. If they do not agree to voluntary treatment at that time they will meet criteria for 302 status based on severity of suicide attempt and ongoing modifiable risk factors. 03/11/22: Remains paranoid at times, unclear what lead to suicide attempt as she continues to have no recollection of this. Plan for inpt psych treatment once medically stable. (1) Encephalopathy: (2) Depression with suicidal ideation: (3) Overdose by acetaminophen: (4) Bipolar 2 disorder: (5) Rhabdomyolysis: (6) PTSD (post-traumatic stress disorder): (7) Blindness of left eye: (8) Anxiety disorder: (9) PCOS (polycystic ovarian syndrome): Plan 03/11/22: -Restart risperidone 2mg qhs -Continue 1-on-1 -Cannot leave AMA 03/09/22: -Continue 1-on-1 for risk of harm to self -Do not discharge or allow to leave AMA-call security and psych liason if she attempts to leave, psych liason to complete 302 petitioning statement -Hold psych medications for now -Once medically cleared plan for psychiatric hospitalization (either 201 or 302 status). Risk Factors Assessment : Yes Health Problems: Yes Mental Health Diagnoses: Yes Substance Use Disorders: Yes Previous Attempt: Yes Previous Psychiatric Hospitalization: Yes Protective Factors Assessment Supportive Family: Yes Interval History Identifying Information 41 yo woman with a history of congenital blindness, self-harm, BPAD II, psychosis, PTSD, alcohol use, depression and anxiety admitted medically following suicide attempt via acetaminophen overdose. Psychiatry consulted for risk assessment and recommendations. Chief Complaint "I'm fine but my legs hurt-I have a clot in my groin". Review of Systems Notes sleep and appetite stable Subjective Subjective Patient was seen & assessed and interval progress reviewed. No longer on NACC but new left sided DVT which she understands and explains appropriately to me. Paranoid at times-initially refused ultrasound as did not want to leave her room as thought she would be "tricked" and made similar statements to psych liason. Today continues to be unable to recall events leading to hospitalization nor why she would have attempted suicide. Watching football. Agrees to allow us to speak with [address] to get records. Physical Exam Psychiatric Orientation: alert and oriented x 3 Apperance: appropriately dressed and appropriately groomed Eye Contact: + fair eye contact Motor Behavior: no abnormal motor movements Speech: normal rate/rhythm/volume of speech Mood: + depressed mood and + anxious mood Thought Process: + concrete thought process Thought Content: + paranoid Suicidal Thoughts: denies suicidal thoughts Homicidal Thoughts: denies homicidal thoughts Hallucinations: no auditory hallucinations Cognition: language grossly intact; + recent memory not intact, + remote memory not intact and + attention not intact Estimated Intelligence: + below average estimated intelligence Insight: + limited insight Judgement: + limited judgement Vital Signs (Past 24 Hours) Last Vital Signs Temp 36.5 C 03/11/22 10:48 Pulse 63 03/11/22 10:48 Resp 18 03/11/22 10:48 BP 122/70 03/11/22 10:48 Pulse Ox 97 03/11/22 10:48 O2 Del Method 03/11/22 10:48 O2 Flow Rate 2 03/09/22 07:00 Results & Data ([facility]) Laboratory Results Laboratory Results - last 24 hr 03/11/22 03/11/22 03/11/22 00:38 00:38 06:27 WBC 9.28 RBC 3.87 L Hgb 11.0 L Hct 33.5 L MCV 86.6 MCH 28.4 MCHC 32.8 RDW Std Deviation 48.9 H RDW Coeff of Cammie 15.4 H Plt Count 179 MPV 9.5 Immature Gran % (Auto) 0.3 Neut % (Auto) 54.8 Lymph % (Auto) 34.5 [place] % (Auto) 7.9 Eos % (Auto) 2.2 Baso % (Auto) 0.3 Neut # (Auto) 5.09 Lymph # (Auto) 3.20 [place] # (Auto) 0.73 Eos # (Auto) 0.20 Baso # (Auto) 0.03 Immature Gran # (Auto) 0.03 H PT 12.1 H INR 1.1 APTT PTT Ratio Sodium Potassium Chloride Carbon Dioxide Anion Gap BUN Creatinine Est Cr Clr Drug Dosing Est GFR ( Amer) Est GFR (Non-Af Amer) BUN/Creatinine Ratio Glucose Calcium Magnesium Total Bilirubin 0.3 Direct Bilirubin 0.0 AST 34 ALT 59 H Alkaline Phosphatase 35 Total Creatine Kinase Total Protein 5.6 L Albumin 3.5 Globulin Albumin/Globulin Ratio Procalcitonin 03/11/22 03/11/22 03/11/22 06:27 06:27 08:42 WBC RBC Hgb Hct MCV MCH MCHC RDW Std Deviation RDW Coeff of Cammie Plt Count MPV Immature Gran % (Auto) Neut % (Auto) Lymph % (Auto) [place] % (Auto) Eos % (Auto) Baso % (Auto) Neut # (Auto) Lymph # (Auto) [place] # (Auto) Eos # (Auto) Baso # (Auto) Immature Gran # (Auto) PT 12.2 H INR 1.2 H APTT 32.3 H PTT Ratio 1.2 Sodium 140 Potassium 3.8 Chloride 113 H Carbon Dioxide 20 L Anion Gap 7 BUN 3 L Creatinine 0.86 Est Cr Clr Drug Dosing 81.1 Est GFR ( Amer) 96.6 Est GFR (Non-Af Amer) 83.3 BUN/Creatinine Ratio 3.5 L Glucose 92 Calcium 8.3 L Magnesium 2.0 Total Bilirubin 0.4 Direct Bilirubin AST 28 ALT 50 Alkaline Phosphatase 34 Total Creatine Kinase 720 H Total Protein 5.5 L Albumin 3.5 Globulin 2.0 L Albumin/Globulin Ratio 1.8 Procalcitonin 1.01 H Current Inpatient Medications Current Inpatient Medications: Current Inpatient Medications Albuterol (Albut/Ipratrop 3mg/0.5mg Neb 3 Ml Vial) 3 ml NEB QIDR PRN; Protocol PRN Reason: dyspnea, wheeze Stop: 04/08/22 06:59 Calcium Carbonate (Calcium Carbonate 500 Mg Chewable Tab) 1,000 mg PO TID PRN PRN Reason: GI UPSET/INDIGESTION Stop: 04/08/22 00:30 Cyanocobalamin (Cyanocobalamin (B-12) 500 Mcg Tablet) 500 mcg PO DAILY [facility] Stop: 04/08/22 08:59 Last Admin: 03/11/22 08:58 Dose: 500 mcg Enoxaparin Sodium (Enoxaparin 80 Mg/0.8 Ml Syr) 80 mg SC Q12H [facility] Stop: 04/10/22 00:59 Last Admin: 03/11/22 12:09 Dose: 80 mg Parenteral Electrolytes (Normosol-R) 1,000 mls @ 115 mls/hr IV .Q8H42M [facility] Stop: 04/08/22 07:59 Last Admin: 03/11/22 10:56 Dose: 115 mls/hr Ampicillin Sodium/Sulbactam Sodium 3,000 mg/ Sodium Chloride 108 mls @ 216 mls/hr IV Q6H [facility]; Protocol Stop: 03/14/22 05:59 Latanoprost (Latanoprost 0.005% Op Soln 2.5 Ml Btl) 1 drops OP QPM [facility] Stop: 04/08/22 20:59 Last Admin: 03/10/22 20:59 Dose: 1 drops Lidocaine (Lidocaine 5% 1 Patch) 1 patch TD QAM [facility] Stop: 04/09/22 12:59 Last Admin: 03/11/22 08:58 Dose: 1 patch Miscellaneous (Remove Lidoderm Patch) 1 each N/A DAILY@2100 [facility] Stop: 04/09/22 20:59 Last Admin: 03/10/22 20:59 Dose: 1 each Multivitamins/Folic Acid/Vitamin C (Multivitamin Chewable Tab) 1 tab PO DAILY [facility] Stop: 04/08/22 08:59 Last Admin: 03/11/22 08:58 Dose: 1 tab Ondansetron HCl (Ondansetron Inj 2 Mg/Ml 2 Ml Vial) 4 mg IV Q6H PRN PRN Reason: Nausea Stop: 04/08/22 00:30 Warfarin Sodium (Warfarin Sod 5 Mg Tab) 5 mg PO DAILY@1600 [facility] Stop: 04/10/22 15:59 (1) Rhabdomyolysis Rhabdomyolysis type: non-traumatic Qualified Code(s): M62.82 - Rhabdomyolysis (2) Overdose by acetaminophen Encounter type: initial encounter Injury intent: intentional self-harm Qualified Code(s): T39.1X2A - Poisoning by 4-Aminophenol derivatives, intentional self-harm, initial encounter
[2022-03-11] MEDS ORDERED: HEPARIN SODIUM/DEXTROSE 25,000 UNITS/500 ML BAG IV SCH (14:00)
[2022-03-11] MEDS ORDERED: WARFARIN SOD 5 MG TAB PO SCH (16:00)
[2022-03-11] MEDS: AMPICILLIN/SULBACTAM SOD 3,000 MG in 0.9 % SODIUM CHLORIDE 100 ML IV SCH ×2 (18:09→23:54)
[2022-03-11] MEDS ORDERED: risperiDONE 2 MG TABLET PO SCH (21:00)
[2022-03-11] MEDS: LATANOPROST 0.005% OP SOLN 2.5 ML BTL OP SCH (21:09)
[2022-03-12] MEDS: NORMOSOL-R 1,000 ML IV SCH (04:36)
[2022-03-12] MEDS: AMPICILLIN/SULBACTAM SOD 3,000 MG in 0.9 % SODIUM CHLORIDE 100 ML IV SCH ×2 (05:57→11:29)
[2022-03-12 06:27] LABS: INR 1.2 (0.9-1.1)
[2022-03-12] MEDS: CYANOCOBALAMIN (B-12) 500 MCG TABLET PO SCH (08:31)
[2022-03-12] MEDS: MULTIVITAMIN CHEWABLE TAB PO SCH (08:31)
[2022-03-12] MEDS: LIDOCAINE 5% 1 PATCH TD SCH (08:31)
--- NOTE | 2022-03-12 09:28 | Hospitalist Progress Note ---
Date of Service March 12, 2022 Assessment & Plan (1) Overdose by acetaminophen: Plan: Overdose by acetaminophen with psych history of depression with suicidal ideation/gestures; bipolar 2 disorder; anxiety;depression- Unknown amount and time of ingestion Tylenol level 9 - recheck this afternoon Continue Acetadote per protocol as recommended by poison control follow LFTs and electrolytes Normosol for IVF Psychiatry following, appreciate recommendations. Continue one-to-one for risk of self-harm, do not discharge her allowed to leave AMA, psych medications held at this time, once medically cleared transition to BHU. Undergoing transition to warfarin for DVT at this time. Discussed with poison control 03/10 recommended for an additional 16 hours of NAC, has completed NAC protocol overnight of (2) Encephalopathy: Plan: Metabolic encephalopathy or phycologically related or acute delirium -ED: LV SF normal, mild to moderate right ventricular dilation, right atrial mild dilation. EF 55 to 60%. Normal wall motion. - appreciate psych input, see above - Continue with electrolyte replacements and time for mentation clearing Patient appears at mentation baseline 03/10 (3) Depression with suicidal ideation: Plan: Psychiatric medications held as noted above, psychiatry following. Appreciate recommendations (4) Elevated troponin: Plan: HScTNI 1047 increased this morning from 143. ECG obtained and without acute elevation - likely demand from above as well as hypoxia- continue to trend- downtrending to 655.4 - ECHO as above- normal LV function with mild to moderate dilation of RV with elevated RVSP (5) Suicide gesture: Plan: See above (6) Acute respiratory failure with hypoxia: Plan: Acute respiratory failure with hypoxia/aspiration pneumonia- CTchest: Groundglass opacities concerning for superimposed aspiration pneumonia. Patient at risk of aspiration in the setting of overdose. Duonebs every 4 hours while awake and every 2 hours when necessary. Nasal cannula oxygen, titrate to keep pulse ox around 94 to 95% (7) Rhabdomyolysis: Plan: Secondary to unknown down time at home CK 3958 at peak -downtrending Follow serial laboratories with IV fluids as noted renal function stable and urine output adequate (8) Aspiration pneumonia: Plan: Treatment as above - as above (9) Bipolar 2 disorder: Plan: See above (10) Alcoholism: Plan: History of ETOH level <10 on admit continue with Thiamine (11) PTSD (post-traumatic stress disorder): Plan: See above (12) Anxiety disorder: Plan: As above (13) Depression: Plan: As above (14) DVT (deep venous thrombosis): Plan: - Patient with leg/thigh pain 03/10. - Ultrasound lower extremity, left: DVT of the left peroneal vein. Started on Lovenox 1M PK twice daily Deferred DOAC for concerns of hepatic dysfunction/Tylenol overdose Will initiate warfarin load/transition. Admission and Anticipated Discharge Date Admission Date: March 08, 2022 Results & Data Results & Data ([facility]) Vital Signs (Past 12 Hours) Vital Signs Temp Pulse Pulse Resp BP Pulse Ox O2 Del Method 03/12/22 07:39 98.1 F 60 18 105/76 96 Room Air 03/12/22 02:52 97.9 F 83 18 154/76 H 96 Room Air 03/11/22 22:14 66 03/11/22 23:04 98.2 F 63 18 128/89 100 Room Air 03/11/22 22:27 97.7 F 72 20 127/78 98 Room Air PG Care Time/CCT Total # of Minutes Spent Total Time Spent with Patient: Total time spent is greater than 50% in coordination of care (as documented) at patient's floor/unit and/or counseling patient: Coding Diagnoses Overdose by acetaminophen T39.1X2A Encounter type: initial encounter Injury intent: intentional self-harm Encephalopathy G93.40 Depression with suicidal ideation F32.A; R45.851 Elevated troponin R77.8 Suicide gesture X83.8XXA Encounter type: initial encounter Acute respiratory failure with hypoxia J96.01 Rhabdomyolysis M62.82 Rhabdomyolysis type: non-traumatic Aspiration pneumonia J69.0 Bipolar 2 disorder F31.81 Alcoholism F10.20 PTSD (post-traumatic stress disorder) F43.10 Anxiety disorder F41.9 Depression F32.9 DVT (deep venous thrombosis) I82.409 (1) Overdose by acetaminophen Encounter type: initial encounter Injury intent: intentional self-harm Qualified Code(s): T39.1X2A - Poisoning by 4-Aminophenol derivatives, intentional self-harm, initial encounter (2) Suicide gesture Encounter type: initial encounter Qualified Code(s): X83.8XXA - Intentional self-harm by other specified means, initial encounter (3) Rhabdomyolysis Rhabdomyolysis type: non-traumatic Qualified Code(s): M62.82 - Rhabdomyolysis
[2022-03-12] MEDS: ENOXAPARIN 80 MG/0.8 ML SYR SC SCH (11:30)
--- NOTE | 2022-03-12 19:17 | Discharge Summary ---
Date of Service March 12, 2022 Admission HPI Per Admitting Provider The patient is a 41-year-old female with a past medical history including depression with suicidal ideation, suicide gesture, bipolar 2 disorder, dysfunctional uterine bleeding, alcoholism, PTSD, left eye blindness, PCOS, tobacco use disorder, vitamin B12 deficiency, to pression with anxiety, disc metabolic syndrome X, glaucoma, and mild cervical dysplasia. The patient reportedly had had a recent admission to the [facility], where medications were had been adjusted, and had been recently discharged to home. The patient was found as noted by her father above. Patient had been given Narcan prior to arrival without significant improvement. She was noted to be hypoxic by prehospital personnel, and became hypoxic while walking in the emergency department to the bathroom. The patient reports that she took a large amount of Tylenol and prazosin in attempt to overdose before she went to bed last evening. Her acetaminophen level was 9 in the emergency department, and it was recommended by the [facility] department that she be admitted and begun on N- acetylcysteine Acetadote therapy, which was started in the emergency department Discharge Data Consultations 03/08/22 22:04 ED Decision to Admit Stat 03/09/22 00:31 Consult Psychiatry Routine Hospital Course (1) Overdose by acetaminophen: Overdose by acetaminophen with psych history of depression with suicidal ideation/gestures; bipolar 2 disorder; anxiety;depression- Unknown amount and time of ingestion Tylenol level 9 -improved on recheck Continue Acetadote per protocol as recommended by poison control Psychiatry following, appreciate recommendations. medically cleared transition to [facility]. will not use warfarin to treat DVT as with concern for tylenol OD, will use xarelto (2) Encephalopathy: resolved , drugs of abuse screen negative, (3) Depression with suicidal ideation: Psychiatric medications will be directed in [facility] where she has agreed to go voluntarily (4) Elevated troponin: HScTNI 1047 increased this morning from 143. ECG obtained and without acute elevation - likely demand from above as well as hypoxia- continue to trend- downtrending to 655.4 - ECHO as above- normal LV function with mild to moderate dilation of RV with elevated RVSP (5) Suicide gesture: See above (6) Acute respiratory failure with hypoxia: Acute respiratory failure with hypoxia/aspiration pneumonia-resolved, will complete augmentin CTchest: Groundglass opacities concerning for superimposed aspiration pneumonia. Patient at risk of aspiration in the setting of overdose. \ (7) Rhabdomyolysis: Secondary to unknown down time at home CK 3958 at peak -downtrending no need for additional labs (8) Aspiration pneumonia: Treatment as above - as above (9) Bipolar 2 disorder: See above (10) Alcoholism: History of ETOH level <10 on admit (11) PTSD (post-traumatic stress disorder): See above (12) Anxiety disorder: As above (13) Depression: As above (14) DVT (deep venous thrombosis): - Patient with leg/thigh pain 03/10. - Ultrasound lower extremity, left: DVT of the left peroneal vein. now that liver dysfunction has passed will have xarelto.
--- NOTE | 2022-03-12 19:19 | Discharge Summary ---
Date of Service March 12, 2022 Principal Diagnosis Suicide gesture Tylenol overdose DVT, acute Discharge Exam The patient appeared stable Vital signs as documented. Lungs are clear to auscultation and appear unlabored Cardiac exam, Rhythm is regular.. No murmurs, rubs or gallops. Abdominal exam reveals normal bowel sounds, soft non tender, no masses Extremities are nonedematous and both pedal pulses are normal. Neurologic exam is alert and oriented, no focal loss of strength or sensation Skin is without bruises or rashes Psychologically is without concerns for anxiety or depression. Discharge Data Allergies Allergy/AdvReac Type Severity Reaction Status Date / Time Iodinated Contrast Media Allergy Intermediate Hives Verified 03/08/22 21:04 Consultations 03/08/22 22:04 ED Decision to Admit Stat 03/09/22 00:31 Consult Psychiatry Routine Ordered Studies 03/08/22 20:17 CT cervical spine wo con Stat CT head/brain wo con Stat 03/08/22 20:19 CT abd pelvis wo con Stat CT chest diagnostic wo con Stat 03/10/22 12:59 US venous doppler LE Urgent Hospital Course (1) Overdose by acetaminophen: Overdose by acetaminophen with psych history of depression with suicidal idea tion/gestures; bipolar 2 disorder; anxiety;depression- Unknown amount and time of ingestion Tylenol level 9 -improved on recheck Continue Acetadote per protocol as recommended by poison control Psychiatry following, appreciate recommendations. medically cleared transition to [facility]. will not use warfarin to treat DVT as with concern for tylenol OD, will use xarelto (2) Encephalopathy: resolved , drugs of abuse screen negative, (3) Depression with suicidal ideation: Psychiatric medications will be directed in [facility] where she has agreed to go voluntarily (4) Elevated troponin: HScTNI 1047 increased this morning from 143. ECG obtained and without acute elevation - likely demand from above as well as hypoxia- continue to trend- downtrending to 655.4 - ECHO as above- normal LV function with mild to moderate dilation of RV with elevated RVSP (5) Suicide gesture: See above (6) Acute respiratory failure with hypoxia: Acute respiratory failure with hypoxia/aspiration pneumonia-resolved, will complete augmentin CTchest: [place] opacities concerning for superimposed aspiration pneumonia. Patient at risk of aspiration in the setting of overdose. \ (7) Rhabdomyolysis: Secondary to unknown down time at home CK 3958 at peak -downtrending no need for additional labs (8) Aspiration pneumonia: Treatment as above - as above (9) Bipolar 2 disorder: See above (10) Alcoholism: History of ETOH level <10 on admit (11) PTSD (post-traumatic stress disorder): See above (12) Anxiety disorder: As above (13) Depression: As above (14) DVT (deep venous thrombosis): - Patient with leg/thigh pain 03/10. - Ultrasound lower extremity, left: DVT of the left peroneal vein. now that liver dysfunction has passed will have xarelto. Total Time Total Time Spent Total Time Spent (In Minutes): It required greater than 30 minutes to prepare this patient for discharge, I personally spoke to Dr. Henson about this transfer Discharge Plan Discharge Items Patient Disposition: Transfer [facility] Reason For Visit: ACETAMINOPHEN OVERDOSE, RHABDOMYOLYSIS Discharge Diagnosis: tylenol toxicity, overdose pneumonia rhabdomyolysis depression Activity: Per Instructions section Non-emergency contact: Primary Care Provider Call non-emergency contact if: your symptoms worsen Follow-up/Referrals: Lance Luu III, CRNP [Primary Care Provider] - Diet: Carb Consistent or DM2 Addtl Attending Provider Instructions: please follow up with your family doctor to help manage your blood thinner this should continue for a least 3 months from this hospital stay xarelto will be 15 mg by mouth twice a day for 21 days the 20 mg once a day you will be on an additional 3 days of antibiotic pills Medication Instructions: Your condition is typically treated with an anticoagulant. Anticoagulants will thin your blood to help prevent new clots. * You should take her medication exactly as directed. * Never skip a dose. * Never take a double dose. If you miss a dose, take it as soon as you remember. Call your Primary Care doctor if you experience any of the following: * Swelling or Pain in your leg * Sudden, continuous pain deep in a muscle * Pain that worsens when you are active or when you stand still for a long time * Chest Pain * Sudden Shortness of Breath * Rapid or pounding heart beat * Fainting * Dizziness * Cough with blood or bloody sputum * Sweating more than normal * Bruises * Heavy or uncontrolled bleeding * Blood in your urine, stool or vomit * Black or tarry stools Caring for Your Self at Home: * Avoid sitting, standing or lying down for long periods without moving your legs and feet * When traveling by car, stop to get out and move around at least once every 3 hours * On long airplane, train or bus rides, get up and move around when possible * If you can't get up, wiggle your toes and tighten your calves to keep your blood moving Follow Up: It is important for you to keep your follow up appointments with your medical provider. Pending Studies at Discharge: No Stand-Alone Forms: [facility] Medications and DC Order Prescriptions: New amoxicillin-pot clavulanate 875-125 mg tablet 1 tab PO BID Qty: 6 0RF Xarelto 15 mg tablet 15 mg PO BID 21 Days Qty: 42 0RF Rx Instructions: must administer with a meal/food Continued magnesium oxide 400 mg (241.3 mg magnesium) tablet 400 mg PO DAILY latanoprost 0.005 % drops 1 drops OPB QPM multivitamin with iron [Daily Vitamin with Iron] tablet 1 tab PO DAILY trazodone 50 mg tablet 50 mg PO HS venlafaxine 150 mg capsule,extended release 24hr 150 mg PO BID Rx Instructions: TAKES QAM & AT 1300 risperidone 2 mg tablet 2 mg PO HS cyanocobalamin (vitamin B-12) [Vitamin B-12] 500 mcg Tablet 500 mcg PO DAILY calcium carbonate 500 mg calcium (1,250 mg) Tablet,Chewable 1,000 mg PO TID PRN (Reason: GI UPSET/INDIGESTION) Discontinued prazosin 1 mg capsule 1 mg PO HS Qty: 30 2RF acetaminophen [Tylenol] 325 mg Tablet 650 mg PO TID PRN (Reason: PAIN/FEVER) omega 3-txo-ryu-fish oil [Fish Oil] 1,000 mg (120 mg-180 mg) Capsule 1 cap PO DAILY Rx Instructions: MED LIST FROM [facility] D/C No Action (DME) blood pressure monitor [Blood Pressure Kit] Kit See Rx Instructions .Route Qty: 1 0RF Rx Instructions: As directed Discharge Orders: Discharge Order (Routine); Ordered 03/12/22 Ordered By: Mj Escoto Admission Data Admit Date/Time: 03/08/22 22:28 Attending Provider: Mj Escoto Admit Provider: Nicolas Cornejo Primary Care Provider: Lance Luu III Other Providers: Nicolas Cornejo ; Ariadne Gleason ; Victoria Guajardo ; Pretty Ames Other Interventions: Discharge Summary Assessment (RN) Last Done: 03/12/22 13:56 Coding Level of Care Code D/C DAY MANAGEMENT >30 MINS Diagnoses Overdose by acetaminophen T39.1X2A Encounter type: initial encounter Injury intent: intentional self-harm Encephalopathy G93.40 Depression with suicidal ideation F32.A; R45.851 Elevated troponin R77.8 Suicide gesture X83.8XXA Encounter type: initial encounter Acute respiratory failure with hypoxia J96.01 Rhabdomyolysis M62.82 Rhabdomyolysis type: non-traumatic Aspiration pneumonia J69.0 Bipolar 2 disorder F31.81 Alcoholism F10.20 PTSD (post-traumatic stress disorder) F43.10 Anxiety disorder F41.9 Depression F32.9 DVT (deep venous thrombosis) I82.409
[2022-03-12] MEDS ORDERED: RIVAROXABAN 15 MG TAB PO SCH (21:00)
[2022-03-14 13:02] LABS: MDA negative; MDEA negative; MDMA (Ecstasy) Urine, Confirm negative
== END 2022-03-12 15:45 | DRG 917 ==
LOC: ED 19:57 → SUATTDRO 22:28 → 2S 22:28

== ENCOUNTER 2022-03-12 13:52 | Inpatient (IN) ==
[2022-03-12] MEDS ORDERED: ACETAMINOPHEN 325 MG TAB PO PRN (13:53)
[2022-03-12] MEDS ORDERED: hydrOXYzine HCl 25 MG TAB PO PRN ×2 (13:53)
[2022-03-12] MEDS ORDERED: SODIUM CHLORIDE 0.65% NA SOLN 45 ML (OCEAN) PRN (13:53)
[2022-03-12] MEDS ORDERED: ALUMINUM/MAGNESIUM SUSP 30 ML UDC PO PRN (13:53)
[2022-03-12] MEDS ORDERED: MAGNESIUM HYDROXIDE SUSP 30 ML UDC PO PRN (13:53)
[2022-03-12] MEDS ORDERED: BISMUTH SUBSALICYLATE LIQD 236 ML PO PRN (13:53)
[2022-03-12] MEDS ORDERED: CALCIUM CARBONATE 500 MG CHEWABLE TAB PO PRN (16:17)
[2022-03-12] MEDS ORDERED: Patient's HEIGHT &/or WEIGHT Needed SCH (16:30)
[2022-03-12] MEDS ORDERED: risperiDONE 0.5 MG TABLET PO PRN (18:55)
[2022-03-12] MEDS: AMOXICILLIN/CLAVULANATE 875 MG TAB PO SCH (20:55)
[2022-03-12] MEDS: RIVAROXABAN 15 MG TAB PO SCH (20:55)
[2022-03-12] MEDS: risperiDONE 2 MG TABLET PO SCH (20:56)
[2022-03-12] MEDS: LATANOPROST 0.005% OP SOLN 2.5 ML BTL OPB SCH (21:05)
[2022-03-13] MEDS: MAGNESIUM OXIDE 400 MG TAB PO SCH (09:06)
[2022-03-13] MEDS: RIVAROXABAN 15 MG TAB PO SCH ×2 (09:07→20:29)
[2022-03-13] MEDS: CEROVITE ADV FORMULA TAB PO SCH (09:07)
[2022-03-13] MEDS: CYANOCOBALAMIN (B-12) 500 MCG TABLET PO SCH (09:07)
[2022-03-13] MEDS: AMOXICILLIN/CLAVULANATE 875 MG TAB PO SCH ×2 (09:07→20:29)
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
[2022-03-13] MEDS: LATANOPROST 0.005% OP SOLN 2.5 ML BTL OPB SCH (20:27)
[2022-03-13] MEDS: risperiDONE 2 MG TABLET PO SCH (20:29)
[2022-03-14 07:41] LABS: Chol HDL Ratio 4.9 (0-5)
[2022-03-14 08:01] LABS: Estimated Average Glucose 114 mg/dl; Hemoglobin A1C 5.6 % (4.5-5.6)
--- NOTE | 2022-03-14 08:48 | Psychiatric Progress Note ---
Date of Service March 14, 2022 Impression / Recommendations Impression The patient is a 41 year old with a history of BPAD II with psychotic features, depression, anxiety and PTSD who was admitted for suicide attempt and paranoia. Diagnostically consistent with unspecified psychosis and depression-likely BPAD current depressive episode with psychotic features (though she denies depressive symptoms) vs substance-induced (though has not improved with prolonged medical admission but UDS positive for MDMA, confirmatory testing pending, was on Venlafaxine), vs primary psychotic disorder vs complex PTSD vs delusional disorder vs schizoid PD vs Karsten Bonnet syndrome (may explain periodic visual hallucinations, doesn't fit with paranoia) vs hypomania BPAD II. The patient is deemed unstable and requires psychiatric hospitalization for diagnostic clarification, safety and stabilization, medication management and development of further coping skills. MNPR due to paranoia, limited tolerance for prolonged social interactions. 03/14/22: Mood seems to be improving a bit, still with depression and some paranoia. Consents starting venlafaxine but wants to keep it at low dosages. Reviewed that her prior dosage of twice daily was more unusual. Discussed risks benefits alternatives. Reviewed side effects including but not limited to possible elevations in blood pressure or heart rate, GI symptoms, headache, sexual side effects. Reviewed fasting lipid panel which was normal with exception of slightly elevated triglycerides the lower than when it was last checked in 2019. Fasting glucose was normal and hemoglobin A1c was normal. She consents to continuing with risperidone. (1) Suicide attempt by acetaminophen overdose: (2) Unspecified psychosis not due to a substance or known physiological condition: (3) Depression: (4) Anxiety disorder: (5) PTSD (post-traumatic stress disorder): (6) Bipolar 2 disorder: (7) DVT (deep venous thrombosis): (8) Aspiration pneumonia: (9) Rhabdomyolysis: (10) Blindness of left eye: (11) Polycystic ovarian syndrome: (12) Tobacco use: (13) High triglycerides: PCP follow-up Plan 03/14/22: Starting Effexor XR 37.5mg qd. Continue risperidone. Reviewed fasting labs-slightly elevated TGs. 03/13/22: The patient was admitted to the [facility] ([facility]) on q15 min checks (behavioral with suicide precautions) for safety. The patient will participate in group, recreational, and milieu therapies and will be offered additional individual and family sessions as clinically appropriate. -She did agree to [facility] for [place] and [place], will review these records -Will continue with risperidone 2mg qhs and 0.5mg BID prn for psychosis -Will continue to hold Venlafaxine and Trazodone -Consider re-trial of Venlafaxine vs alternative SSRI (doesn't appear to have tried sertraline to date) after further review of records -fasting glucose and lipid panel in the morning -Continue Xarelto 15mg BID for 21 days then reduce to 20mg daily for 3 months -Continue Augmentin BID through 03/14/22. Inventory Assets Strengths: has housing, willing to get treatment, has outpatient providers Needs: safety and stabilization, medication adjustment, additional coping skills, increased outpatient services-consider case finisher Suicide Risk Level Suicide Risk Level: Moderate (q15 min suicide checks) Suicide Risk Level Comments: due to suicide attempt prior to admission but now denying SI and feels safe but with some paranoia, able to safety contract and agrees to let nursing/staff know should they develop plan, intent or feel unable to remain safe. Risk Factors Assessment : Yes Do You Have Access To A Gun?: No Health Problems: Yes Mental Health Diagnoses: Yes Previous Attempt: Yes Previous Psychiatric Hospitalization: Yes Hopelessness: No Protective Factors Assessment Stable Relationships: No Supportive Family: Yes Good Rapport with Provider: Yes Interval History Identifying Information DANNA GRAY is a 41-year-old F who currently lives in [place] alone, has a history of BPAD type II with psychotic features during depressed episode, depression, anxiety, PTSD, alcohol use disorder, and was admitted on 03/12/22 15:51 on a 201 voluntary commitment for suicide attempt via overdose requiring medical admission and paranoia. Chief Complaint "I get on my own nerves sometimes". Review of Systems Sleep Information Total Hours of Sleep: 6.5 Meal Information Percent Meal Consumed - Breakfast: 100 Percent Meal Consumed - Lunch: 100 Percent Meal Consumed - Dinner: 100 Subjective Subjective Patient was seen & assessed and interval progress reviewed with treatment team nursing and social work. Rated her mood last night as "a little bit of everything". Cravings nicotine and was thinking about trying to sign a 72 but then was paranoid about signing any paperwork. Wants to start Effexor XR but notes "only low doses, that's what helps me the most". Continues to have limited insight into events telling social work "I'd like to go home and whatever happens happens". Today reports her mood is "ok". Likes that football game will happen tomorrow. Notes she gets anxious signing things as doesn't want to be "tricked". Had charge for public drunkenness in December. Denies recent use. States she has been feeling more "talkative" but that generally she likes to keep to herself. Physical Exam Psychiatric Orientation: alert and oriented x 3 Apperance: appropriately dressed and appropriately groomed Eye Contact: + fair eye contact (legally blind in one eye) Motor Behavior: no abnormal motor movements Speech: normal rate/rhythm/volume of speech Affect: + constricted affect Thought Process: + circumstantial thought process and + concrete thought process Thought Content: + paranoid Suicidal Thoughts: denies suicidal thoughts (but with serious attempt prior to admission requiring medical admission ), denies suicidal plan and denies suicidal intent Homicidal Thoughts: denies homicidal thoughts Hallucinations: no auditory hallucinations and no visual hallucinations Cognition: remote memory grossly intact and language grossly intact; + recent memory not intact and + attention not intact Estimated Intelligence: + below average estimated intelligence Insight: + limited insight Judgement: + limited judgement Vital Signs (Past 24 Hours) Last Vital Signs Temp 36.8 C 03/14/22 06:00 Pulse 83 03/14/22 06:39 Resp 18 03/14/22 06:00 BP 108/72 03/14/22 06:39 Pulse Ox 96 03/12/22 16:20 O2 Del Method 03/12/22 16:20 Results & Data ([facility]) Laboratory Results Laboratory Results - last 24 hr 03/14/22 03/14/22 07:07 07:07 Fasting Glucose 99 Estimat Average Glucose 114 Hemoglobin A1c 5.6 Triglycerides 168 H Cholesterol 138 LDL Cholesterol, Calc 76 VLDL Cholesterol, Calc 34 H HDL Cholesterol 28 Cholesterol/HDL Ratio 4.9 Current Inpatient Medications Current Inpatient Medications: Current Inpatient Medications Al Hydrox/Mg Hydrox/Simethicone (Aluminum/Magnesium Susp 30 Ml Udc) 30 ml PO Q4 H PRN PRN Reason: GI Upset Stop: 04/11/22 13:52 Amoxicillin/Clavulanate Potassium (Amoxicillin/Clavulanate 875 Mg Tab) 1 tab PO BID [facility] Stop: 03/15/22 07:00 Last Admin: 03/13/22 20:29 Dose: 1 tab Bismuth Subsalicylate (Bismuth Subsalicylate Liqd 236 Ml) 15 ml PO PRN PRN PRN Reason: Loose Stool Stop: 04/11/22 13:52 Calcium Carbonate (Calcium Carbonate 500 Mg Chewable Tab) 1,000 mg PO TID PRN PRN Reason: GI UPSET/INDIGESTION Stop: 04/11/22 16:16 Cyanocobalamin (Cyanocobalamin (B-12) 500 Mcg Tablet) 500 mcg PO DAILY [facility] Stop: 04/12/22 08:59 Last Admin: 03/13/22 09:07 Dose: 500 mcg Hydroxyzine HCl (Hydroxyzine Hcl 25 Mg Tab) 50 mg PO HSZ PRN PRN Reason: Insomnia Stop: 04/11/22 13:52 Hydroxyzine HCl (Hydroxyzine Hcl 25 Mg Tab) 25 mg PO Q4H PRN PRN Reason: Anxiety Stop: 04/11/22 13:52 Latanoprost (Latanoprost 0.005% Op Soln 2.5 Ml Btl) 1 drops OPB QPM [facility] Stop: 04/11/22 20:59 Last Admin: 03/13/22 20:27 Dose: 1 drops Magnesium Hydroxide (Magnesium Hydroxide Susp 30 Ml Udc) 30 ml PO DAILY PRN PRN Reason: Constipation Stop: 04/11/22 13:52 Magnesium Oxide (Magnesium Oxide 400 Mg Tab) 400 mg PO DAILY [facility] Stop: 04/12/22 08:59 Last Admin: 03/13/22 09:06 Dose: 400 mg Multivitamins/Minerals (Cerovite Adv Formula Tab) 1 tab PO DAILY [facility] Stop: 04/12/22 08:59 Last Admin: 03/13/22 09:07 Dose: 1 tab Risperidone (Risperidone 2 Mg Tablet) 2 mg PO HS [facility] Stop: 04/11/22 21:59 Last Admin: 03/13/22 20:29 Dose: 2 mg Risperidone (Risperidone 0.5 Mg Tablet) 0.5 mg PO BID PRN PRN Reason: Agitation Stop: 04/11/22 20:59 Rivaroxaban (Rivaroxaban 15 Mg Tab) 15 mg PO BID [facility] Stop: 04/11/22 20:59 Last Admin: 03/13/22 20:29 Dose: 15 mg Sodium Chloride (Sodium Chloride 0.65% Na Soln 45 Ml ([place])) 1 - 2 sprays NA PRN PRN PRN Reason: Nasal Dryness/Congestion Stop: 04/11/22 13:52 Venlafaxine HCl (Venlafaxine Hcl Xr 37.5 Mg Capxr) 37.5 mg PO QAM [facility] Stop: 04/13/22 08:59 Post Discharge Appointments Primary Care Physician Name Of Family Doctor: Lance Luu (1) Rhabdomyolysis Rhabdomyolysis type: non-traumatic Qualified Code(s): M62.82 - Rhabdomyolysis
[2022-03-14] MEDS: CYANOCOBALAMIN (B-12) 500 MCG TABLET PO SCH (08:52)
[2022-03-14] MEDS: AMOXICILLIN/CLAVULANATE 875 MG TAB PO SCH ×2 (08:52→20:36)
[2022-03-14] MEDS: MAGNESIUM OXIDE 400 MG TAB PO SCH (08:52)
[2022-03-14] MEDS: CEROVITE ADV FORMULA TAB PO SCH (08:53)
[2022-03-14] MEDS: RIVAROXABAN 15 MG TAB PO SCH ×2 (08:53→20:36)
[2022-03-14] MEDS: VENLAFAXINE HCL XR 37.5 MG CAPXR PO SCH (08:53)
[2022-03-14] MEDS: risperiDONE 2 MG TABLET PO SCH (20:37)
[2022-03-14] MEDS: LATANOPROST 0.005% OP SOLN 2.5 ML BTL OPB SCH (21:24)
[2022-03-15] MEDS: RIVAROXABAN 15 MG TAB PO SCH ×2 (08:16→21:20)
[2022-03-15] MEDS: VENLAFAXINE HCL XR 37.5 MG CAPXR PO SCH (08:16)
[2022-03-15] MEDS: MAGNESIUM OXIDE 400 MG TAB PO SCH (08:16)
[2022-03-15] MEDS: CEROVITE ADV FORMULA TAB PO SCH (08:16)
[2022-03-15] MEDS: CYANOCOBALAMIN (B-12) 500 MCG TABLET PO SCH (08:16)
--- NOTE | 2022-03-15 15:25 | Psychiatric Progress Note ---
Date of Service March 15, 2022 Impression / Recommendations Impression The patient is a 41 year old with a history of BPAD II with psychotic features, depression, anxiety and PTSD who was admitted for suicide attempt and paranoia. MNPR due to hx paranoia, limited tolerance for prolonged social interactions. 03/15/22: improving (1) Suicide attempt by acetaminophen overdose: (2) Unspecified psychosis not due to a substance or known physiological condition: (3) Depression: (4) Anxiety disorder: (5) PTSD (post-traumatic stress disorder): (6) Bipolar 2 disorder: (7) DVT (deep venous thrombosis): (8) Aspiration pneumonia: (9) Rhabdomyolysis: (10) Blindness of left eye: (11) Polycystic ovarian syndrome: (12) Tobacco use: (13) High triglycerides: PCP follow-up Plan 03/15/22: declines titration of Effexor XR. completed course of antibiotics this am. 03/14/22: Starting Effexor XR 37.5mg qd. Continue risperidone. Reviewed fasting labs-slightly elevated TGs. 03/13/22: The patient was admitted to the [facility] ([facility] mental health unit) on q15 min checks (behavioral with suicide precautions) for safety. The patient will participate in group, recreational, and milieu therapies and will be offered additional individual and family sessions as clinically appropriate. -She did agree to [facility] for [place] [facility] [place], will review these records -Will continue with risperidone 2mg qhs and 0.5mg BID prn for psychosis -Will continue to hold Venlafaxine and Trazodone -Consider re-trial of Venlafaxine vs alternative SSRI (doesn't appear to have tried sertraline to date) after further review of records -fasting glucose and lipid panel in the morning -Continue Xarelto 15mg BID for 21 days then reduce to 20mg daily for 3 months -Continue Augmentin BID through 03/14/22. Inventory Assets Strengths: has housing, willing to get treatment, has outpatient providers Needs: safety and stabilization, medication adjustment, additional coping skills, increased outpatient services-consider case management rn Suicide Risk Level Suicide Risk Level: Moderate (q15 min suicide checks) Suicide Risk Level Comments: Risk Factors Assessment : Yes Do You Have Access To A Gun?: No Health Problems: Yes Mental Health Diagnoses: Yes Previous Attempt: Yes Previous Psychiatric Hospitalization: Yes Hopelessness: No Protective Factors Assessment Stable Relationships: No Supportive Family: Yes Good Rapport with Provider: Yes Interval History Identifying Information DANNA GRAY is a 41-year-old F who currently lives in [place] alone, has a history of BPAD type II with psychotic features during depressed episode, depression, anxiety, PTSD, alcohol use disorder, and was admitted on 03/12/22 15:51 on a 201 voluntary commitment for suicide attempt via overdose requiring medical admission and paranoia. Chief Complaint "I get anxioius alot". Review of Systems Sleep Information Total Hours of Sleep: 6.5 Meal Information Percent Meal Consumed - Breakfast: 100 Percent Meal Consumed - Lunch: 100 Percent Meal Consumed - Dinner: 100 Subjective Subjective Patient was seen & assessed and interval progress reviewed with nursing and social work. Patient seems to have limited problem solving but amenable to discussion of only having 1 week supply of meds available at a time. Is allowing staff to contact father around safety planning but otherwise identifies limited resources. States that she never wants to take too much medication again. Physical Exam Psychiatric Orientation: alert and oriented x 3 Apperance: appropriately dressed and appropriately groomed Eye Contact: + fair eye contact (legally blind in one eye) Motor Behavior: no abnormal motor movements Speech: normal rate/rhythm/volume of speech Affect: + anxious affect Mood: + anxious mood Thought Process: + concrete thought process Suicidal Thoughts: denies suicidal thoughts, denies suicidal plan and denies suicidal intent Homicidal Thoughts: denies homicidal thoughts Hallucinations: no auditory hallucinations and no visual hallucinations Cognition: language grossly intact Estimated Intelligence: + below average estimated intelligence Insight: + limited insight Judgement: + limited judgement Vital Signs (Past 24 Hours) Last Vital Signs Temp 36.8 C 03/15/22 06:35 Pulse 103 H 03/15/22 06:36 Resp 16 03/15/22 06:35 BP 120/75 03/15/22 06:36 Pulse Ox 96 03/12/22 16:20 O2 Del Method 03/12/22 16:20 Results & Data ([facility]) Current Inpatient Medications Current Inpatient Medications: Current Inpatient Medications Al Hydrox/Mg Hydrox/Simethicone (Aluminum/Magnesium Susp 30 Ml Udc) 30 ml PO Q4H PRN PRN Reason: GI Upset Stop: 04/11/22 13:52 Bismuth Subsalicylate (Bismuth Subsalicylate Liqd 236 Ml) 15 ml PO PRN PRN PRN Reason: Loose Stool Stop: 04/11/22 13:52 Calcium Carbonate (Calcium Carbonate 500 Mg Chewable Tab) 1,000 mg PO TID PRN PRN Reason: GI UPSET/INDIGESTION Stop: 04/11/22 16:16 Cyanocobalamin (Cyanocobalamin (B-12) 500 Mcg Tablet) 500 mcg PO DAILY [facility] Stop: 04/12/22 08:59 Last Admin: 03/15/22 08:16 Dose: 500 mcg Hydroxyzine HCl (Hydroxyzine Hcl 25 Mg Tab) 50 mg PO HSZ PRN PRN Reason: Insomnia Stop: 04/11/22 13:52 Hydroxyzine HCl (Hydroxyzine Hcl 25 Mg Tab) 25 mg PO Q4H PRN PRN Reason: Anxiety Stop: 04/11/22 13:52 Latanoprost (Latanoprost 0.005% Op Soln 2.5 Ml Btl) 1 drops OPB QPM [facility] Stop: 04/11/22 20:59 Last Admin: 03/14/22 21:24 Dose: 1 drops Magnesium Hydroxide (Magnesium Hydroxide Susp 30 Ml Udc) 30 ml PO DAILY PRN PRN Reason: Constipation Stop: 04/11/22 13:52 Magnesium Oxide (Magnesium Oxide 400 Mg Tab) 400 mg PO DAILY [facility] Stop: 04/12/22 08:59 Last Admin: 03/15/22 08:16 Dose: 400 mg Multivitamins/Minerals (Cerovite Adv Formula Tab) 1 tab PO DAILY [facility] Stop: 04/12/22 08:59 Last Admin: 03/15/22 08:16 Dose: 1 tab Risperidone (Risperidone 2 Mg Tablet) 2 mg PO HS [facility] Stop: 04/11/22 21:59 Last Admin: 03/14/22 20:37 Dose: 2 mg Risperidone (Risperidone 0.5 Mg Tablet) 0.5 mg PO BID PRN PRN Reason: Agitation Stop: 04/11/22 20:59 Rivaroxaban (Rivaroxaban 15 Mg Tab) 15 mg PO BID [facility] Stop: 04/11/22 20:59 Last Admin: 03/15/22 08:16 Dose: 15 mg Sodium Chloride (Sodium Chloride 0.65% Na Soln 45 Ml ([place])) 1 - 2 sprays NA PRN PRN PRN Reason: Nasal Dryness/Congestion Stop: 04/11/22 13:52 Venlafaxine HCl (Venlafaxine Hcl Xr 37.5 Mg Capxr) 37.5 mg PO QAM [facility] Stop: 04/13/22 08:59 Last Admin: 03/15/22 08:16 Dose: 37.5 mg Post Discharge Appointments Primary Care Physician Name Of Family Doctor: Lance Luu (1) Rhabdomyolysis Rhabdomyolysis type: non-traumatic Qualified Code(s): M62.82 - Rhabdomyolysis
[2022-03-15] MEDS: risperiDONE 2 MG TABLET PO SCH (21:20)
[2022-03-15] MEDS: LATANOPROST 0.005% OP SOLN 2.5 ML BTL OPB SCH (21:21)
[2022-03-16] MEDS: CYANOCOBALAMIN (B-12) 500 MCG TABLET PO SCH (08:41)
[2022-03-16] MEDS: MAGNESIUM OXIDE 400 MG TAB PO SCH (08:41)
[2022-03-16] MEDS: RIVAROXABAN 15 MG TAB PO SCH ×2 (08:42→21:04)
[2022-03-16] MEDS: CEROVITE ADV FORMULA TAB PO SCH (08:42)
[2022-03-16] MEDS: VENLAFAXINE HCL XR 37.5 MG CAPXR PO SCH (08:42)
--- NOTE | 2022-03-16 15:57 | Psychiatric Progress Note ---
Date of Service March 16, 2022 Impression / Recommendations Impression The patient is a 41 year old with a history of BPAD II with psychotic features, depression, anxiety and PTSD who was admitted for suicide attempt and paranoia. MNPR due to hx paranoia, limited tolerance for prolonged social interactions. 03/16/22: improving (1) Suicide attempt by acetaminophen overdose: (2) Unspecified psychosis not due to a substance or known physiological condition: (3) Depression: (4) Anxiety disorder: (5) PTSD (post-traumatic stress disorder): (6) Bipolar 2 disorder: (7) DVT (deep venous thrombosis): (8) Aspiration pneumonia: (9) Rhabdomyolysis: (10) Blindness of left eye: (11) Polycystic ovarian syndrome: (12) Tobacco use: (13) High triglycerides: PCP follow-up Plan 03/16/22: continue current medication and treatment plan. 03/15/22: declines titration of Effexor XR. completed course of antibiotics this am. 03/14/22: Starting Effexor XR 37.5mg qd. Continue risperidone. Reviewed fasting labs-slightly elevated TGs. 03/13/22: The patient was admitted to the [facility] ([facility] mental health unit) on q15 min checks (behavioral with suicide precautions) for safety. The patient will participate in group, recreational, and milieu therapies and will be offered additional individual and family sessions as clinically appropriate. -She did agree to [facility] for [place] [facility] [place], will review these records -Will continue with risperidone 2mg qhs and 0.5mg BID prn for psychosis -Will continue to hold Venlafaxine and Trazodone -Consider re-trial of Venlafaxine vs alternative SSRI (doesn't appear to have tried sertraline to date) after further review of records -fasting glucose and lipid panel in the morning -Continue Xarelto 15mg BID for 21 days then reduce to 20mg daily for 3 months -Continue Augmentin BID through 03/14/22. Inventory Assets Strengths: has housing, willing to get treatment, has outpatient providers Needs: safety and stabilization, medication adjustment, additional coping skills, increased outpatient services-consider case management assistant Suicide Risk Level Suicide Risk Level: Moderate (q15 min suicide checks) Suicide Risk Level Comments: Risk Factors Assessment : Yes Do You Have Access To A Gun?: No Health Problems: Yes Mental Health Diagnoses: Yes Previous Attempt: Yes Previous Psychiatric Hospitalization: Yes Hopelessness: No Protective Factors Assessment Stable Relationships: No Supportive Family: Yes Good Rapport with Provider: Yes Interval History Identifying Information DANNA GRAY is a 41-year-old F who currently lives in [place] alone, has a history of BPAD type II with psychotic features during depressed episode, depression, anxiety, PTSD, alcohol use disorder, and was admitted on 03/12/22 15:51 on a 201 voluntary commitment for suicide attempt via overdose requiring medical admission and paranoia. Chief Complaint "I feeling some better." Review of Systems Sleep Information Total Hours of Sleep: 7 Meal Information Percent Meal Consumed - Breakfast: 100 Percent Meal Consumed - Lunch: 100 Percent Meal Consumed - Dinner: 100 Subjective Subjective Patient was seen & assessed and interval progress reviewed with nursing and social work. no acute issues overnight, did agree to meeting with father but seemed somewhat paranoid about signing releases though likely due to low vision. She reports heavy menses and attributes clotting to anticoagulant. She denies pain and accepted pads from staff. Agreeable to follow up on an outpatient basis as no acute issue. Physical Exam Psychiatric Orientation: alert and oriented x 3 Apperance: appropriately dressed and appropriately groomed Eye Contact: + fair eye contact (legally blind in one eye) Motor Behavior: no abnormal motor movements Speech: normal rate/rhythm/volume of speech Affect: + constricted affect Mood: + anxious mood Thought Process: + concrete thought process Suicidal Thoughts: denies suicidal thoughts, denies suicidal plan and denies suicidal intent Homicidal Thoughts: denies homicidal thoughts Hallucinations: no auditory hallucinations and no visual hallucinations Cognition: language grossly intact Vital Signs (Past 24 Hours) Last Vital Signs Temp 36.6 C 03/16/22 06:40 Pulse 85 03/16/22 06:41 Resp 16 03/16/22 06:40 BP 117/81 03/16/22 06:41 Pulse Ox 96 03/12/22 16:20 O2 Del Method 03/12/22 16:20 Results & Data ([facility]) Current Inpatient Medications Current Inpatient Medications: Current Inpatient Medications Al Hydrox/Mg Hydrox/Simethicone (Aluminum/Magnesium Susp 30 Ml Udc) 30 ml PO Q4H PRN PRN Reason: GI Upset Stop: 04/11/22 13:52 Bismuth Subsalicylate (Bismuth Subsalicylate Liqd 236 Ml) 15 ml PO PRN PRN PRN Reason: Loose Stool Stop: 04/11/22 13:52 Calcium Carbonate (Calcium Carbonate 500 Mg Chewable Tab) 1,000 mg PO TID PRN PRN Reason: GI UPSET/INDIGESTION Stop: 04/11/22 16:16 Cyanocobalamin (Cyanocobalamin (B-12) 500 Mcg Tablet) 500 mcg PO DAILY [facility] Stop: 04/12/22 08:59 Last Admin: 03/16/22 08:41 Dose: 500 mcg Hydroxyzine HCl (Hydroxyzine Hcl 25 Mg Tab) 50 mg PO HSZ PRN PRN Reason: Insomnia Stop: 04/11/22 13:52 Hydroxyzine HCl (Hydroxyzine Hcl 25 Mg Tab) 25 mg PO Q4H PRN PRN Reason: Anxiety Stop: 04/11/22 13:52 Latanoprost (Latanoprost 0.005% Op Soln 2.5 Ml Btl) 1 drops OPB QPM [facility] Stop: 04/11/22 20:59 Last Admin: 03/15/22 21:21 Dose: 1 drops Magnesium Hydroxide (Magnesium Hydroxide Susp 30 Ml Udc) 30 ml PO DAILY PRN PRN Reason: Constipation Stop: 04/11/22 13:52 Magnesium Oxide (Magnesium Oxide 400 Mg Tab) 400 mg PO DAILY [facility] Stop: 04/12/22 08:59 Last Admin: 03/16/22 08:41 Dose: 400 mg Multivitamins/Minerals (Cerovite Adv Formula Tab) 1 tab PO DAILY [facility] Stop: 04/12/22 08:59 Last Admin: 03/16/22 08:42 Dose: 1 tab Risperidone (Risperidone 2 Mg Tablet) 2 mg PO HS [facility] Stop: 04/11/22 21:59 Last Admin: 03/15/22 21:20 Dose: 2 mg Risperidone (Risperidone 0.5 Mg Tablet) 0.5 mg PO BID PRN PRN Reason: Agitation Stop: 04/11/22 20:59 Rivaroxaban (Rivaroxaban 15 Mg Tab) 15 mg PO BID [facility] Stop: 04/11/22 20:59 Last Admin: 03/16/22 08:42 Dose: Not Given Sodium Chloride (Sodium Chloride 0.65% Na Soln 45 Ml ([place])) 1 - 2 sprays NA PRN PRN PRN Reason: Nasal Dryness/Congestion Stop: 04/11/22 13:52 Venlafaxine HCl (Venlafaxine Hcl Xr 37.5 Mg Capxr) 37.5 mg PO QAM [facility] Stop: 04/13/22 08:59 Last Admin: 03/16/22 08:42 Dose: 37.5 mg Post Discharge Appointments Primary Care Physician Name Of Family Doctor: Lance Luu (1) Rhabdomyolysis Rhabdomyolysis type: non-traumatic Qualified Code(s): M62.82 - Rhabdomyolysis
[2022-03-16] MEDS: risperiDONE 2 MG TABLET PO SCH (21:02)
[2022-03-16] MEDS: LATANOPROST 0.005% OP SOLN 2.5 ML BTL OPB SCH (21:03)
[2022-03-17] MEDS: MAGNESIUM OXIDE 400 MG TAB PO SCH (08:38)
[2022-03-17] MEDS: CYANOCOBALAMIN (B-12) 500 MCG TABLET PO SCH (08:38)
[2022-03-17] MEDS: CEROVITE ADV FORMULA TAB PO SCH (08:39)
[2022-03-17] MEDS: VENLAFAXINE HCL XR 37.5 MG CAPXR PO SCH (08:40)
[2022-03-17] MEDS: RIVAROXABAN 15 MG TAB PO SCH (08:44)
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
[2022-03-17] MEDS ORDERED: DESTROY THIS MEDICATION ONE (11:20)
== END 2022-03-17 11:56 | disposition home or self-care (01) | DRG 885 ==
LOC: 3S 15:51 → SUATTDRO 15:51